=== PATIENT | female | born 1955 | race Caucasian/White ===

== ENCOUNTER 2017-08-06 13:40 | Observation (INO) | payer BC ==
[~2017-08-06] VITALS: Ht 154.9 cm; Wt 128.4 kg
[2017-08-06] MEDS ORDERED: ONDANSETRON INJ 2 MG/ML 2 ML VIAL IV STA ×2 (14:24→15:24)
[2017-08-06] MEDS ORDERED: SODIUM CHLORIDE 0.9% 1000ML 1,000 ML IV STA (14:24)
[2017-08-06] MEDS ORDERED: OPTIRAY 320 IV PRN (14:30)
[2017-08-06] MEDS ORDERED: MoRPHine SULFATE 10 MG/ML CARP/VIAL IV PRN (14:30)
[2017-08-06] MEDS ORDERED: MoRPHine SULFATE 2 MG/ML CARP ONE (14:32)
[2017-08-06 14:53] LABS: BASO % 0.2 %; BASO ABS # 0.03 K/uL (0-0.2); EOS % 0.4 %; EOS ABS # 0.07 K/uL (0-0.5); IG# 0.07 K/uL (0.00-0.02); LYMPH % 8.6 %; LYMPH ABS # 1.59 K/uL (1.2-3.4); MEAN CELL VOLUME 87.7 fL (80-100); MEAN CORPUSCULAR HEMOGLOBIN 30.1 pg (25-34); MEAN CORPUSCULAR HGB CONC 34.3 g/dl (32-36); MEAN PLATELET VOLUME 9.4 fL (7.4-10.4); MONO % 4.5 %; MONO ABS # 0.84 K/uL (0.11-0.59); NEUT % 85.9 %; NEUT ABS # 15.94 K/uL (1.4-6.5); PLATELET COUNT 371 K/uL (130-400); RED CELL DISTRIBUTION WIDTH SD 44.7 fL (36.4-46.3); WHITE BLOOD COUNT 18.54 K/uL (4.8-10.8)
[2017-08-06] MEDS ORDERED: LISI-788 PO (15:02)
[2017-08-06] MEDS ORDERED: MULT-506 PO (15:02)
[2017-08-06] MEDS ORDERED: DOCU-94 PO (15:02)
[2017-08-06] MEDS ORDERED: IBUP600T44 PO (15:02)
[2017-08-06] MEDS ORDERED: FERR1TAB23 PO (15:02)
[2017-08-06] MEDS ORDERED: ASCO500T16 PO (15:02)
[2017-08-06 15:10] LABS: ALBUMIN 3.2 gm/dl (3.4-5.0); CALCIUM 9.1 mg/dl (8.5-10.1); CREATININE 0.81 mg/dl (0.60-1.20); POTASSIUM 3.3 mmol/L (3.5-5.1)
[2017-08-06 15:13] LABS: TOTAL PROTEIN 8.5 gm/dl (6.4-8.2)
[2017-08-06] MEDS ORDERED: METOCLOPRAMIDE HCL INJ 5 MG/ML 2 ML VIAL IV STA (16:16)
--- NOTE | 2017-08-06 17:35 | DIAGNOSTIC IMAGING REPORT ---
CT SCAN OF THE ABDOMEN AND PELVIS WITH IV CONTRAST CLINICAL HISTORY: Left-sided abdominal pain. COMPARISON STUDY: No priors. TECHNIQUE: Following the IV administration of 115 cc of Optiray 320, CT scan of the abdomen and pelvis is performed from the lung bases to the proximal femora. Images are reviewed in the axial, sagittal, and coronal planes. IV contrast was administered without complication. A dose lowering technique was utilized adhering to the principles of ALARA. The examination is degraded by large body habitus, and by streak artifact from the body wall abutting the CT gantry. CT DOSE: 1718.60 mGy.cm FINDINGS: Lung bases: The heart is normal in size and without pericardial effusion. The lung bases are clear noting dependent atelectasis. There is a small hiatal hernia. Liver: The contrast-enhanced liver is enlarged, measuring 21.5 cm in length. The liver demonstrates diffusely diminished attenuation consistent with hepatic steatosis. There is minimal central intrahepatic biliary ductal dilatation. The hepatic veins and portal veins are patent. Numerous calcified granulomas are identified. Gallbladder: Not identified and presumed surgically absent. Spleen: Normal in size and attenuation. There are numerous calcified splenic granulomas. Pancreas: Unremarkable. Adrenal glands: Unremarkable. Kidneys: The contrast enhanced kidneys are normal in size and without hydronephrosis. There is heterogeneous perfusion of both kidneys, left greater than right. There is associated left-sided perinephric stranding and trace perinephric fluid. The appearance suggests pyelonephritis. There is a 2.8 cm low-attenuation focus in the interpolar left kidney seen on image #[id number]. Abdominal vasculature: The abdominal aorta is normal in course and caliber noting scattered foci of atherosclerotic calcification. Bowel: There is moderate colonic diverticulosis without CT evidence of acute diverticulitis. No bowel obstruction is seen. The appendix is well-visualized and normal. Peritoneum: There is no intraperitoneal free air or abdominal ascites. Lymphadenopathy: None. Pelvic viscera: The bladder is normal as visualized. The uterus is enlarged and contains numerous fibroids. No adnexal lesion is seen. Skeletal structures: The skeletal structures are osteopenic. Degenerative change is present throughout the lumbosacral spine. No lytic or blastic lesions are seen. IMPRESSION: 1. There is heterogeneous perfusion of both kidneys, left greater than right with associated left-sided perinephric stranding and trace perinephric fluid. The appearance suggests bilateral pyelonephritis. Correlation with clinical findings and urinalysis will be required. 2. There is a 2.8 cm low-attenuation focus present in the interpolar left kidney. Although this could represent a complex cyst, the appearance is concerning for phlegmonous change/developing abscess. Mass is considered much less likely. Follow-up renal ultrasound in several weeks time is recommended to document resolution. 3. Moderate colonic diverticulosis without CT evidence of acute diverticulitis. 4. Hepatomegaly and severe hepatic steatosis. 5. Enlarged fibroid uterus. 6. Additional findings as above. Electronically signed by: Villa Degroot M.D. 08/06/2017 5:33 PM Dictated Date/Time: 08/06/2017 5:27 PM
[2017-08-06] MEDS ORDERED: CEFTRIAXONE SOD INJ 1 GM ADDVIAL IV STA (18:03)
[2017-08-06] MEDS ORDERED: ACETAMINOPHEN 325 MG TAB PO PRN (19:15)
[2017-08-06] MEDS ORDERED: LSN20 PO (19:15)
[2017-08-06] MEDS ORDERED: HYDR25TA4 PO (19:15)
[2017-08-06] MEDS ORDERED: ONDANSETRON INJ 2 MG/ML 2 ML VIAL IV PRN (19:15)
--- NOTE | 2017-08-06 19:28 | History and Physical ---
History & Physical Date & Time of Service: Aug 06, 2017 at 19:17 Chief Complaint: Pain In L Side Of Stomach Primary Care Physician: No Doctor, Assigned History of Present Illness Source: patient This is a 62yo F with PMH of HTN, osteoarthritis and diverticulitis who presents with LLQ abdominal pain x 3 days. Patient is here visiting family and was in normal state of health until Thursday night, when she experienced sudden onset LLQ pain that is sharp and constant, non-radiating. Associated with nausea , vomiting, low grade fever and chills. Decreased PO intake 2/2 nausea. Came to ED for further evaluation. Denies fever, chills, lightheadedness, chest pain, SOB, vomiting, flank pain, urinary symptoms, constipation/diarrhea or LE swelling. Past Medical/Surgical History Medical Problems: (1) H/O diverticulitis of colon Status: Chronic (2) HTN (hypertension) Status: Chronic (3) Osteoarthritis Status: Chronic Surgical Problems: (1) S/P cholecystectomy Status: Resolved (2) S/P left oophorectomy Status: Resolved Family History Non-contributory Social History Smoking Status: Never Smoker Alcohol Use: none Occupational Status: employed Allergies Coded Allergies: Codeine (Unverified Adverse Reaction, Severe, N/V, 08/06/17) Home Medications Scheduled Ascorbic Acid (Ascorbic Acid), 500 MG PO DAILY Docusate Sodium (Colace), 1 CAP PO DAILY Ferrous Sulfate (Iron), 1 TAB PO DAILY Hydrochlorothiazide (Hctz), 25 MG PO HS Ibuprofen (Motrin), 600 MG PO BID Lisinopril (Lisinopril), 1 TAB PO HS Multivitamin (Multivitamin), 1 TAB PO DAILY Review of Systems Ten systems reviewed and negative except as noted in the HPI. Physical Exam Vital Signs Date Time Temp Pulse Resp B/P (MAP) Pulse Ox O2 Delivery O2 Flow Rate FiO2 08/06/17 17:58 93 08/06/17 17:52 96 18 142/68 94 Room Air 08/06/17 15:40 90 16 134/72 98 Room Air 08/06/17 14:57 95 08/06/17 13:45 37.0 105 20 136/91 95 Room Air General Appearance: no apparent distress, + obese Head: normocephalic, atraumatic Eyes: normal inspection, PERRL, sclerae normal ENT: normal ENT inspection, hearing grossly normal, pharynx normal (dry mucous membranes) Neck: supple, no JVD, trachea midline Respiratory/Chest: chest non-tender, lungs clear, normal breath sounds, no respiratory distress, no accessory muscle use Cardiovascular: regular rate, rhythm, normal peripheral pulses, + systolic murmur (heard best at [facility]) Abdomen/GI: soft, no organomegaly, + tenderness (Mild LLQ, suprapubic tenderness ) Back: + pertinent finding (No CVA tenderness) Extremities/Musculoskelatal: normal inspection, no calf tenderness, normal capillary refill, no pedal edema Neurologic/Psych: no motor/sensory deficits, alert, normal mood/affect, oriented x 3 Skin: normal color, warm/dry, no rash Diagnostics Laboratory Results Results Past 24 Hours Test 08/06/17 14:40 08/06/17 18:29 Range/Units White Blood Count 18.54 4.8-10.8 K/uL Red Blood Count 3.99 4.2-5.4 M/uL Hemoglobin 12.0 12.0-16.0 g/dL Hematocrit 35.0 37-47 % Mean Corpuscular Volume 87.7 80-100 fL Mean Corpuscular Hemoglobin 30.1 25-34 pg Mean Corpuscular Hemoglobin Concent 34.3 32-36 g/dl Platelet Count 371 130-400 K/uL Mean Platelet Volume 9.4 7.4-10.4 fL Neutrophils (%) (Auto) 85.9 % Lymphocytes (%) (Auto) 8.6 % Monocytes (%) (Auto) 4.5 % Eosinophils (%) (Auto) 0.4 % Basophils (%) (Auto) 0.2 % Neutrophils # (Auto) 15.94 1.4-6.5 K/uL Lymphocytes # (Auto) 1.59 1.2-3.4 K/uL Monocytes # (Auto) 0.84 0.11-0.59 K/uL Eosinophils # (Auto) 0.07 0-0.5 K/uL Basophils # (Auto) 0.03 0-0.2 K/uL RDW Standard Deviation 44.7 36.4-46.3 fL RDW Coefficient of Variation 14.0 11.5-14.5 % Immature Granulocyte % (Auto) 0.4 % Immature Granulocyte # (Auto) 0.07 0.00-0.02 K/uL Urine Color YELLOW Urine Appearance CLOUDY CLEAR Urine pH 5.0 4.5-7.5 Urine Specific [place] 1.015 1.000-1.030 Urine Protein TRACE NEG Urine Glucose (UA) NEG NEG Urine Ketones NEG NEG Urine Occult Blood 2+ NEG Urine Nitrite POS NEG Urine Bilirubin NEG NEG Urine Urobilinogen NEG NEG Urine Leukocyte Esterase SMALL NEG Urine WBC (Auto) 10-30 0-5 /hpf Urine RBC (Auto) 5-10 0-4 /hpf Urine Hyaline Casts (Auto) 1-5 0-5 /lpf Urine Epithelial Cells (Auto) >30 0-5 /lpf Urine Bacteria (Auto) 4+ NEG Sodium Level 133 136-145 mmol/L Potassium Level 3.3 3.5-5.1 mmol/L Chloride Level 98 98-107 mmol/L Carbon Dioxide Level 29 21-32 mmol/L Anion Gap 6.0 3-11 mmol/L Blood Urea Nitrogen 16 7-18 mg/dl Creatinine 0.81 0.60-1.20 mg/dl Est Creatinine Clear Calc Drug Dose 93.3 ml/min Estimated GFR () 91.5 Estimated GFR (Non- 78.9 BUN/Creatinine Ratio 19.4 10-20 Random Glucose 102 70-99 mg/dl Calcium Level 9.1 8.5-10.1 mg/dl Total Bilirubin 1.1 0.2-1 mg/dl Direct Bilirubin 0.3 0-0.2 mg/dl Aspartate Amino Transf (AST/SGOT) 19 15-37 U/L Alanine Aminotransferase (ALT/SGPT) 38 12-78 U/L Alkaline Phosphatase 94 45-117 U/L Total Protein 8.5 6.4-8.2 gm/dl Albumin 3.2 3.4-5.0 gm/dl Lipase 127 73-393 U/L Bedside Lactic Acid Venous 0.59 0.90-1.70 mmol/L Microbiology Results 08/06/17 Urine Culture, Received Pending Diagnostic Radiology CT Abd/pelvis: IMPRESSION: 1. There is heterogeneous perfusion of both kidneys, left greater than right with associated left-sided perinephric stranding and trace perinephric fluid. The appearance suggests bilateral pyelonephritis. Correlation with clinical findings and urinalysis will be required. 2. There is a 2.8 cm low-attenuation focus present in the interpolar left kidney. Although this could represent a complex cyst, the appearance is concerning for phlegmonous change/developing abscess. Mass is considered much less likely. Follow-up renal ultrasound in several weeks time is recommended to document resolution. 3. Moderate colonic diverticulosis without CT evidence of acute diverticulitis. 4. Hepatomegaly and severe hepatic steatosis. 5. Enlarged fibroid uterus. Impression Assessment and Plan This is a 62yo F with PMH of HTN, osteoarthritis and diverticulitis who presents with LLQ abdominal pain x 3 days and was found to have bilateral pyelonephritis. Bilateral pyelonephritis: -Nausea, vomiting, low grade fever x 3 days -Leukocytosis of 18.5 -CT abd/pelvis with appearance of bilateral pyelonephritis -Rocephin given in ED. Plan to continue -Urine and blood cultures pending -IVF resuscitation -Pain management and anti-emetics Hypokalemia: -2/2 GI losses -Replaced -Repeat BMP in AM HTN: -Cont home dose lisinopril -Held HCTZ while giving fluids Osteoarthritis: -Stable -Held home dose motrin while receiving IV pain meds Renal focus on CT abd/pelvis: -Likely a complex cyst vs developing abscess -Radiology recommends follow-up ultrasound in a few weeks to document resolution DVT Ppx: Lovenox SQ Code status: FULL PCP: Here visiting; from [place]. Dispo: Observation on medsur. Plan to return home once medically stable. Patient seen in collaboration with Dr. Lara. Please see addendum. Attending Addendum: The patient was seen and examined Has had fever with chills and nauseous last Thursday Pain left lower abdomen, not getting any better CT documented Bilateral Pyelonephritis and Urine is Dirty O/E No acute distress Chest-clear to auscultate bilaterally Heart-regular,2/6 ESM precordial Abdomen-soft ,mildly tender left Renal angle Extremities-no edema Labs and Imaging studies were reviewed Agree with the assessment and plan. Dr Sarwat Rivas Level of Care Med/Surg Resuscitation Status FULL RESUSCITATION VTE Prophylaxis VTE Risk Assessment Done? Y/N: Yes Risk Level: Low Given or contraindicated: Enoxaparin (Lovenox)SQ Social Service Consult None Apply
[2017-08-06] MEDS ORDERED: KETOROLAC TROMETHAMINE 30 MG/ML VIAL IV PRN (19:30)
[2017-08-06] MEDS ORDERED: POTASSIUM CHLORIDE 20 MEQ TABCR PO ONE (19:30)
[2017-08-06] MEDS ORDERED: MoRPHine SULFATE 2 MG/ML CARP IV PRN (19:30)
[2017-08-06 19:50] VITALS: O2SAT 94
[2017-08-06] MEDS ORDERED: IV FLUIDS COMPLETED PRN (20:00)
[2017-08-06 20:19] VITALS: Ht 154.9 cm; Wt 128.4 kg
[2017-08-06] MEDS ORDERED: SODIUM CHLORIDE 0.9% 1000ML 1,000 ML IV SCH (20:30)
[2017-08-06 20:31] VITALS: BP 129/82; PULSE 84; TEMP 36.8; O2SAT 94
[2017-08-06] MEDS ORDERED: LISINOPRIL 20 MG TAB PO SCH (21:00)
[2017-08-06] MEDS ORDERED: HYDROCHLOROTHIAZIDE 25 MG TAB PO SCH (21:00)
[2017-08-06] MEDS: ENOXAPARIN 40 MG/0.4 ML SYR SQ SCH (21:43)
[2017-08-06] MEDS: METOCLOPRAMIDE HCL INJ 5 MG/ML 2 ML VIAL IV PRN (21:44)
[2017-08-06] MEDS ORDERED: HydrALAZINE HCL 20 MG/ML VIAL IV. PRN (23:00)
[2017-08-06] MEDS ORDERED: POTASSIUM CHLORIDE INJ 40 MEQ in SODIUM CHLORIDE 0.9% 1000ML 1,000 ML IV SCH (23:00)
[2017-08-06 23:23] VITALS: BP 112/70; PULSE 72; TEMP 36.9; O2SAT 96
[2017-08-07 07:45] VITALS: BP 157/82; PULSE 85; TEMP 36.6; O2SAT 98
[2017-08-07 08:09] LABS: HEMATOCRIT 34.2 % (37-47); HEMOGLOBIN 11.8 g/dL (12.0-16.0); MEAN CELL VOLUME 88.8 fL (80-100); MEAN CORPUSCULAR HEMOGLOBIN 30.6 pg (25-34); MEAN CORPUSCULAR HGB CONC 34.5 g/dl (32-36); MEAN PLATELET VOLUME 9.3 fL (7.4-10.4); PLATELET COUNT 350 K/uL (130-400); RED CELL DISTRIBUTION WIDTH SD 45.4 fL (36.4-46.3); WHITE BLOOD COUNT 10.86 K/uL (4.8-10.8)
[2017-08-07 08:39] LABS: CALCIUM 9.1 mg/dl (8.5-10.1); CREATININE 0.73 mg/dl (0.60-1.20); POTASSIUM 3.7 mmol/L (3.5-5.1)
[2017-08-07] MEDS: ASCORBIC ACID 500 MG TAB PO SCH (08:40)
[2017-08-07] MEDS: DOCUSATE SODIUM 100 MG CAP PO SCH (08:41)
[2017-08-07 08:43] LABS: TOTAL PROTEIN 8.4 gm/dl (6.4-8.2)
[2017-08-07] MEDS: METOCLOPRAMIDE HCL INJ 5 MG/ML 2 ML VIAL IV PRN ×2 (09:28→17:00)
[2017-08-07] MEDS ORDERED: PIPERACILL/TAZOBAC CONSULT ACTIVE PRN (10:15)
[2017-08-07] MEDS ORDERED: PIPERACILL/TAZOBAC IV 3.375 GM in DEXTROSE 5% 100ML IV ONE (11:00)
[2017-08-07] MEDS ORDERED: PIPERACILL/TAZOBAC IV 3.375 GM in DEXTROSE 5% 100ML 100 ML IV SCH (12:00)
--- NOTE | 2017-08-07 14:43 | Progress Note ---
Medicine Progress Note Date & Time of Visit: Aug 07, 2017 at 14:39. (Nai Acosta, P.A.-C.) Subjective Patient was seen and examined. Sitting upright in chair looking out the window. States that she experienced chills and nausea overnight but both have since resolved. Tolerated lunch well. No episodes of vomiting since last evening. LLQ is no longer present. Still denies any urinary symptoms or flank pain. No fever, chills, lightheadedness, CP, SOB, abd pain, LE swelling. (Nai Acosta ., P.A.-C.) Objective Last 8 Hrs Date Time Temp Pulse Resp B/P (MAP) Pulse Ox O2 Delivery O2 Flow Rate FiO2 08/07/17 08:11 Room Air 08/07/17 07:45 36.6 85 18 157/82 (107) 98 Room Air Physical Exam: General Appearance: no apparent distress, + obese Head: normocephalic, atraumatic Eyes: normal inspection, PERRL, sclerae normal ENT: normal ENT inspection, hearing grossly normal, pharynx normal (moist mucous membranes) Neck: supple, no JVD, trachea midline Respiratory/Chest: chest non-tender, lungs clear, normal breath sounds, no respiratory distress, no accessory muscle use Cardiovascular: regular rate, rhythm, normal peripheral pulses, + systolic murmur (heard best at [facility]) Abdomen/GI: soft, no organomegaly, diffuse tenderness but no longer in LLQ Back: + pertinent finding (No CVA tenderness) Extremities/Musculoskelatal: normal inspection, no calf tenderness, normal capillary refill, no pedal edema Neurologic/Psych: no motor/sensory deficits, alert, normal mood/affect, oriented x 3 Skin: normal color, warm/dry, no rash Laboratory Results: Last 24 Hours Test 08/06/17 14:40 08/06/17 18:29 08/06/17 20:29 08/07/17 07:53 White Blood Count 18.54 K/uL 10.86 K/uL Red Blood Count 3.99 M/uL 3.85 M/uL Hemoglobin 12.0 g/dL 11.8 g/dL Hematocrit 35.0 % 34.2 % Mean Corpuscular Volume 87.7 fL 88.8 fL Mean Corpuscular Hemoglobin 30.1 pg 30.6 pg Mean Corpuscular Hemoglobin Concent 34.3 g/dl 34.5 g/dl Platelet Count 371 K/uL 350 K/uL Mean Platelet Volume 9.4 fL 9.3 fL Neutrophils (%) (Auto) 85.9 % Lymphocytes (%) (Auto) 8.6 % Monocytes (%) (Auto) 4.5 % Eosinophils (%) (Auto) 0.4 % Basophils (%) (Auto) 0.2 % Neutrophils # (Auto) 15.94 K/uL Lymphocytes # (Auto) 1.59 K/uL Monocytes # (Auto) 0.84 K/uL Eosinophils # (Auto) 0.07 K/uL Basophils # (Auto) 0.03 K/uL RDW Standard Deviation 44.7 fL 45.4 fL RDW Coefficient of Variation 14.0 % 14.0 % Immature Granulocyte % (Auto) 0.4 % Immature Granulocyte # (Auto) 0.07 K/uL Urine Color YELLOW Urine Appearance CLOUDY Urine pH 5.0 Urine Specific [place] 1.015 Urine Protein TRACE Urine Glucose (UA) NEG Urine Ketones NEG Urine Occult Blood 2+ Urine Nitrite POS Urine Bilirubin NEG Urine Urobilinogen NEG Urine Leukocyte Esterase SMALL Urine WBC (Auto) 10-30 /hpf Urine RBC (Auto) 5-10 /hpf Urine Hyaline Casts (Auto) 1-5 /lpf Urine Epithelial Cells (Auto) >30 /lpf Urine Bacteria (Auto) 4+ Sodium Level 133 mmol/L 137 mmol/L Potassium Level 3.3 mmol/L 3.7 mmol/L Chloride Level 98 mmol/L 102 mmol/L Carbon Dioxide Level 29 mmol/L 27 mmol/L Anion Gap 6.0 mmol/L 8.0 mmol/L Blood Urea Nitrogen 16 mg/dl 12 mg/dl Creatinine 0.81 mg/dl 0.73 mg/dl Est Creatinine Clear Calc Drug Dose 93.3 ml/min 103.5 ml/min Estimated GFR () 91.5 103.8 Estimated GFR (Non- 78.9 89.5 BUN/Creatinine Ratio 19.4 16.2 Random Glucose 102 mg/dl 103 mg/dl Calcium Level 9.1 mg/dl 9.1 mg/dl Total Bilirubin 1.1 mg/dl 1.0 mg/dl Direct Bilirubin 0.3 mg/dl Aspartate Amino Transf (AST/SGOT) 19 U/L 46 U/L Alanine Aminotransferase (ALT/SGPT) 38 U/L 82 U/L Alkaline Phosphatase 94 U/L 140 U/L Total Protein 8.5 gm/dl 8.4 gm/dl Albumin 3.2 gm/dl 3.0 gm/dl Lipase 127 U/L Hepatitis C Antibody Screen NEG Bedside Lactic Acid Venous 0.59 mmol/L Prothrombin Time 10.7 SECONDS Prothromb Time International Ratio 1.0 Activated Partial Thromboplast Time 32.0 SECONDS Partial Thromboplastin Ratio 1.2 Globulin 5.4 gm/dl Albumin/Globulin Ratio 0.6 Date/Time Source Procedure Growth Status 08/06/17 20:45 Blood Blood Culture Pending Received 08/06/17 20:29 Blood Blood Culture Pending Received 08/06/17 14:40 Urine , Clean Catch Urine Culture - Preliminary Gram Negative Bacilli Resulted (Nai Acosta, P.A.-C.) Assessment & Plan This is a 62yo F with PMH of HTN, osteoarthritis and diverticulitis who presents with LLQ abdominal pain x 3 days and was found to have bilateral pyelonephritis. Bilateral pyelonephritis: -Nausea, vomiting, low grade fever x 3 days -Leukocytosis of 10.8 (down from 18.5 yesterday) -Preliminary urine with >100,000 CFU/ml of gram negative bacilli -Sensitivities pending -Switched to Zosyn for broader coverage until cultures are finalized -Blood cultures pending -Nausea, LLQ pain improving -Pain management and anti-emetics Hypokalemia: resolved -2/2 GI losses -Replaced HTN: -BP elevated due to missed doses last night 2/2 vomiting -Given extra dose of lisinopril today -Held HCTZ while receiving IVF Osteoarthritis: -Stable -Held home dose motrin while receiving IV pain meds Renal focus on CT abd/pelvis: -Likely a complex cyst vs developing abscess -Radiology recommends follow-up ultrasound in a few weeks to document resolution DVT Ppx: Lovenox SQ Code status: FULL PCP: Here visiting; from [place]. Dispo: Observation on medsurg. Plan to return home once medically stable. Patient seen in collaboration with Dr. Ballard. Please see addendum. Current Inpatient Medications: Current Inpatient Medications Medications (Trade) Dose Ordered Sig/Karly Route Start Time Stop Time Status Last Admin Dose Admin Ioversol (Optiray 320) 100 ml UD PRN IV 08/06/17 14:30 08/10/17 14:29 Enoxaparin Sodium (Lovenox Inj) 40 mg Q24H SQ 08/06/17 19:15 09/05/17 19:14 08/06/17 21:43 40 MG Acetaminophen (Tylenol Tab) 650 mg Q4H PRN PO 08/06/17 19:15 09/05/17 19:14 Ondansetron HCl (Zofran Inj) 4 mg Q6H PRN IV 08/06/17 19:15 09/05/17 19:14 Ascorbic Acid (Vitamin C Tab) 500 mg DAILY PO 08/07/17 09:00 09/06/17 08:59 08/07/17 08:40 500 MG Docusate Sodium (coLACE CAP) 100 mg DAILY PO 08/07/17 09:00 09/06/17 08:59 Lisinopril (Zestril Tab) 20 mg HS PO 08/06/17 21:00 09/05/17 20:59 Ketorolac Tromethamine (Toradol Inj) 30 mg Q6H PRN IV 08/06/17 19:30 08/11/17 19:29 Morphine Sulfate (MoRPHine SULFATE INJ) 2 mg Q4 PRN IV 08/06/17 19:30 08/20/17 19:29 Miscellaneous (Iv Fluids Completed) 1 ea PRN PRN N/A 08/06/17 20:00 08/06/18 19:59 08/07/17 07:59 1 EA Metoclopramide HCl (Reglan Inj) 10 mg Q6H PRN IV 08/06/17 21:00 09/05/17 20:59 08/07/17 09:28 10 MG Hydralazine HCl (HydrALAZINE INJ) 10 mg Q6 PRN IV. 08/06/17 23:00 09/05/17 22:59 Piperacillin Sod/ Tazobactam Sod (Consult) 1 ea UD PRN N/A 08/07/17 10:15 09/06/17 10:14 Piperacillin Sod/ Tazobactam Sod 4.5 gm/Dextrose 120 ml @ 30 mls/hr Q8H IV 08/07/17 16:00 08/17/17 15:59 (Nai Acosta, P.A.-C.) Patient seen and examined with YUSRA Acosta. I agree with the above assessment and Plan. primary issue holding up inpatient discharge is that patient's urine culture has not speciated with sensitivities yet. Partial results as gram negative bacilli and so antibiotic coverage was broadened from ceftriaxone to Zosyn. Patient otherwise doing well. No acute pain. Physical exam is unremarkable - lungs clear to auscultation, lungs sounds are clear, breathing on room air, no abdominal or back pain. (Chuckie Ballard M.D.)
[2017-08-07 15:36] VITALS: BP 152/65; PULSE 86; TEMP 36.8; O2SAT 96
[2017-08-07] MEDS ORDERED: PIPERACILL/TAZOBAC IV 3.375 GM in DEXTROSE 5% 100ML IV SCH (16:00)
[2017-08-07] MEDS: PIPERACILL/TAZOBAC IV 4.5 GM in DEXTROSE 5% 100ML IV SCH (17:05)
[2017-08-07] MEDS ORDERED: CEFTRIAXONE SOD INJ 1 GM in DEXTROSE 5% ADD-VANTAGE 50ML 50 ML IV SCH (18:00)
--- NOTE | 2017-08-07 18:54 | EMERGENCY ROOM VISIT NOTE ---
ED Visit Note First contact with patient: 13:54 Chief Complaint: Abdominal pain. History of Present Illness: Ms. Reed is a 62 year-old white female complaining of left lower quadrant abdominal pain. Historically patient reports status post left ovarian removal and status post cholecystectomy. Additionally patient reports many years ago she was seen for left lower quadrant pain and reports without imaging she was diagnosed with diverticulitis. She reports there was no follow-up from this visit. Patient reports a onset of quadrant abdominal pain that started approximately hours ago. Since that time the pain has been . The pain is currently described as . The pain is nonradiating. The pain worsens with and is improved by . has been taken for pain and relief has been achieved. Associated with the pain there has been . Patient denies fevers, chills, sweats, skin eruptions, skin color changes, upper respiratory tract symptoms, shortness of breath, chest pain, nausea, vomiting, diarrhea, constipation, rectal bleeding, black/tarry stools, urinary symptoms, hematuria, vaginal bleeding, vaginal discharge, back/flank pain. Review of Systems: As noted above in history of present illness. All body systems were reviewed and found to be negative as noted above. Past Medical History: As previously noted, hypertension, status post unspecified rotator cuff surgery and left knee surgery. Current Medications: Iron, multivitamins, vitamin C, Motrin, Colace. Allergies to Medications: Codeine. Social History: Patient is currently employed; she lives with her and feels safe in her home environment; she denies tobacco and alcohol use. Physical Examination: Vital Signs: Date Time Temp Pulse Resp B/P (MAP) Pulse Ox O2 Delivery O2 Flow Rate FiO2 08/06/17 17:58 93 08/06/17 17:52 96 18 142/68 94 Room Air 08/06/17 15:40 90 16 134/72 98 Room Air 08/06/17 14:57 95 08/06/17 13:45 37.0 105 20 136/91 95 Room Air GENERAL: 62-year-old female in mild distress due to pain, nontoxic-appearing, afebrile and hemodynamically stable. NEUROLOGICAL: Awake, alert and oriented to person, place and time. Answering questions appropriately and following commands. Normal gait. Good hand eye coordination. SKIN: Warm, dry and pink. No soft tissue eruptions or trauma noted. HEENT: Atraumatic and normocephalic. PERRLA. Sclera white and conjunctiva pink. Oral cavity moist and pink. Pharynx is nonerythematous or edematous. Speech normal. No lymphadenopathy. Trachea midline. No jugular venous distention. BACK: No tenderness over the bony spine. No CVA tenderness. THORAX: Lungs sounds are clear to auscultation and equal bilaterally with symmetrical chest wall. No wheezing, rales or rhonchi. No crepitus, tenderness , subcutaneous air or deformities noted. HEART: Regular rate and rhythm. No gallops, rubs or murmurs are appreciated. ABDOMEN: Obese and soft with mild left lower quadrant tenderness. Positive bowel sounds in all quadrants. No guarding, rigidity or organomegaly. EXTREMITIES: Moves all extremities well on command and with purpose. All distal neurovascular statuses are intact and equal bilaterally. ED Course: Patient is assessed as noted above. Laboratory Testing: Test 08/06/17 14:40 08/06/17 18:29 Range/Units White Blood Count 18.54 4.8-10.8 K/uL Red Blood Count 3.99 4.2-5.4 M/uL Hemoglobin 12.0 12.0-16.0 g/dL Hematocrit 35.0 37-47 % Mean Corpuscular Volume 87.7 80-100 fL Mean Corpuscular Hemoglobin 30.1 25-34 pg Mean Corpuscular Hemoglobin Concent 34.3 32-36 g/dl Platelet Count 371 130-400 K/uL Mean Platelet Volume 9.4 7.4-10.4 fL Neutrophils (%) (Auto) 85.9 % Lymphocytes (%) (Auto) 8.6 % Monocytes (%) (Auto) 4.5 % Eosinophils (%) (Auto) 0.4 % Basophils (%) (Auto) 0.2 % Neutrophils # (Auto) 15.94 1.4-6.5 K/uL Lymphocytes # (Auto) 1.59 1.2-3.4 K/uL Monocytes # (Auto) 0.84 0.11-0.59 K/uL Eosinophils # (Auto) 0.07 0-0.5 K/uL Basophils # (Auto) 0.03 0-0.2 K/uL RDW Standard Deviation 44.7 36.4-46.3 fL RDW Coefficient of Variation 14.0 11.5-14.5 % Immature Granulocyte % (Auto) 0.4 % Immature Granulocyte # (Auto) 0.07 0.00-0.02 K/uL Urine Color YELLOW Urine Appearance CLOUDY CLEAR Urine pH 5.0 4.5-7.5 Urine Specific [place] 1.015 1.000-1.030 Urine Protein TRACE NEG Urine Glucose (UA) NEG NEG Urine Ketones NEG NEG Urine Occult Blood 2+ NEG Urine Nitrite POS NEG Urine Bilirubin NEG NEG Urine Urobilinogen NEG NEG Urine Leukocyte Esterase SMALL NEG Urine WBC (Auto) 10-30 0-5 /hpf Urine RBC (Auto) 5-10 0-4 /hpf Urine Hyaline Casts (Auto) 1-5 0-5 /lpf Urine Epithelial Cells (Auto) >30 0-5 /lpf Urine Bacteria (Auto) 4+ NEG Sodium Level 133 136-145 mmol/L Potassium Level 3.3 3.5-5.1 mmol/L Chloride Level 98 98-107 mmol/L Carbon Dioxide Level 29 21-32 mmol/L Anion Gap 6.0 3-11 mmol/L Blood Urea Nitrogen 16 7-18 mg/dl Creatinine 0.81 0.60-1.20 mg/dl Est Creatinine Clear Calc Drug Dose 93.3 ml/min Estimated GFR () 91.5 Estimated GFR (Non- 78.9 BUN/Creatinine Ratio 19.4 10-20 Random Glucose 102 70-99 mg/dl Calcium Level 9.1 8.5-10.1 mg/dl Total Bilirubin 1.1 0.2-1 mg/dl Direct Bilirubin 0.3 0-0.2 mg/dl Aspartate Amino Transf (AST/SGOT) 19 15-37 U/L Alanine Aminotransferase (ALT/SGPT) 38 12-78 U/L Alkaline Phosphatase 94 45-117 U/L Total Protein 8.5 6.4-8.2 gm/dl Albumin 3.2 3.4-5.0 gm/dl Lipase 127 73-393 U/L Hepatitis C Antibody Screen NEG NEG Bedside Lactic Acid Venous 0.59 0.90-1.70 mmol/L Microbiology Results 08/06/17 Urine Culture - Gram Negative Bacilli Contrast Abdominal/Pelvic CT: Was reviewed by myself and read by the radiologist showing heterogeneous perfusion of both kidneys, left greater than right with associated left-sided perinephric stranding and trace perinephric fluid suggesting bilateral pyelonephritis. 2.8 cm low attenuation focus present in the interpolar the left kidney of questionable cause. Moderate colonic diverticulosis without diverticulitis. Hepatomegaly with severe hepatic steatosis. Enlarged fibroid uterus. Patient was hydrated with normal saline and she received 4 mg of morphine IV for pain, a total of 8 mg of Zofran and 10 mg of Reglan IV for nausea and 1 g of Rocephin IV for antibiotic coverage. Patient was reassessed multiple times during her stay in the emergency department. Patient's case was reviewed with Dr. Florence; we agreed on diagnostic approach , treatment, disposition and plan per Patient's case was consulted with case management and Ms. Nai Acosta, hospitalist, for medical observation/admission. Patient was educated about today's findings. Clinical Impression: Bilateral pyelonephritis. Decision-Making: Initially my differential diagnosis I considered bowel obstruction, constipation, diverticulitis, ovarian torsion, ovarian cyst rupture , urinary tract infection and other causes. Disposition and Plan: Patient be brought in the hospital for medical observation /admission; please see the hospitalist note for final disposition and plan.
[2017-08-07] MEDS: ENOXAPARIN 40 MG/0.4 ML SYR SQ SCH (19:15)
[2017-08-07] MEDS ORDERED: LISINOPRIL 20 MG TAB PO SCH (21:00)
[2017-08-07 21:39] VITALS: BP 130/80; PULSE 86
[2017-08-07 23:21] VITALS: BP 135/77; PULSE 69; TEMP 36.4; O2SAT 98
[2017-08-08] MEDS: PIPERACILL/TAZOBAC IV 4.5 GM in DEXTROSE 5% 100ML IV SCH ×2 (00:14→08:04)
[2017-08-08] MEDS: METOCLOPRAMIDE HCL INJ 5 MG/ML 2 ML VIAL IV PRN (02:33)
[2017-08-08 07:23] VITALS: BP 149/82; PULSE 79; TEMP 36.7; O2SAT 79; O2SAT 98
[2017-08-08 07:53] LABS: BASO % 0.2 %; BASO ABS # 0.04 K/uL (0-0.2); EOS % 0.6 %; EOS ABS # 0.13 K/uL (0-0.5); HEMATOCRIT 29.5 % (37-47); HEMOGLOBIN 10.1 g/dL (12.0-16.0); IG# 0.09 K/uL (0.00-0.02); LYMPH % 10.7 %; LYMPH ABS # 2.15 K/uL (1.2-3.4); MEAN CELL VOLUME 87.8 fL (80-100); MEAN CORPUSCULAR HEMOGLOBIN 30.1 pg (25-34); MEAN CORPUSCULAR HGB CONC 34.2 g/dl (32-36); MEAN PLATELET VOLUME 9.5 fL (7.4-10.4); MONO % 4.4 %; MONO ABS # 0.89 K/uL (0.11-0.59); NEUT % 83.7 %; NEUT ABS # 16.85 K/uL (1.4-6.5); PLATELET COUNT 316 K/uL (130-400); RED CELL DISTRIBUTION WIDTH CV 14.1 % (11.5-14.5); RED CELL DISTRIBUTION WIDTH SD 45.1 fL (36.4-46.3); WHITE BLOOD COUNT 20.15 K/uL (4.8-10.8)
[2017-08-08 07:57] LABS: ALBUMIN 2.6 gm/dl (3.4-5.0); CALCIUM 8.6 mg/dl (8.5-10.1); CREATININE 0.73 mg/dl (0.60-1.20); POTASSIUM 3.2 mmol/L (3.5-5.1)
[2017-08-08 08:00] LABS: TOTAL PROTEIN 7.1 gm/dl (6.4-8.2)
[2017-08-08] MEDS: DOCUSATE SODIUM 100 MG CAP PO SCH (08:08)
[2017-08-08] MEDS: ASCORBIC ACID 500 MG TAB PO SCH (08:09)
[2017-08-08] MEDS: CIPROFLOXACIN 500 MG TAB PO SCH ×2 (10:08→18:03)
--- NOTE | 2017-08-08 12:25 | Progress Note ---
Internal Med Progress Note Date of Service: Aug 08, 2017. Provider Documentation: SUBJECTIVE: Patient seen and examined at bedside. No reports of acute pain or fever. OBJECTIVE: Exam: General- no acute distress Eyes- EOMI Neck- no JVD, trachea midline Lungs- CTABL, no wheezing Heart- Regular rate Abdomen- truncal obesity, soft, nontender, + bowel sounds Back: no tenderness of the back Extremities- no edema Neuro - alert, oriented, no focal neurological deficits ASSESSMENT & PLAN: This is a 62yo F with PMH of HTN, osteoarthritis and diverticulitis who presents with LLQ abdominal pain x 3 days and was found to have bilateral pyelonephritis CT abdomen and pelvis with IV contrast 08/06/17 Lung bases: The heart is normal in size and without pericardial effusion. The lung bases are clear noting dependent atelectasis. There is a small hiatal hernia. Liver: The contrast-enhanced liver is enlarged, measuring 21.5 cm in length. The liver demonstrates diffusely diminished attenuation consistent with hepatic steatosis. There is minimal central intrahepatic biliary ductal dilatation. The hepatic veins and portal veins are patent. Numerous calcified granulomas are identified. Gallbladder: Not identified and presumed surgically absent. Spleen: Normal in size and attenuation. There are numerous calcified splenic granulomas. Pancreas: Unremarkable. Adrenal glands: Unremarkable. Kidneys: The contrast enhanced kidneys are normal in size and without hydronephrosis. There is heterogeneous perfusion of both kidneys, left greater than right. There is associated left-sided perinephric stranding and trace perinephric fluid. The appearance suggests pyelonephritis. There is a 2.8 cm low-attenuation focus in the interpolar left kidney seen on image #198. Abdominal vasculature: The abdominal aorta is normal in course and caliber noting scattered foci of atherosclerotic calcification. Bowel: There is moderate colonic diverticulosis without CT evidence of acute diverticulitis. No bowel obstruction is seen. The appendix is well-visualized and normal. Peritoneum: There is no intraperitoneal free air or abdominal ascites. Lymphadenopathy: None. Pelvic viscera: The bladder is normal as visualized. The uterus is enlarged and contains numerous fibroids. No adnexal lesion is seen. Skeletal structures: The skeletal structures are osteopenic. Degenerative change is present throughout the lumbosacral spine. No lytic or blastic lesions are seen. IMPRESSION: 1. There is heterogeneous perfusion of both kidneys, left greater than right with associated left-sided perinephric stranding and trace perinephric fluid. The appearance suggests bilateral pyelonephritis. Correlation with clinical findings and urinalysis will be required. 2. There is a 2.8 cm low-attenuation focus present in the interpolar left kidney. Although this could represent a complex cyst, the appearance is concerning for phlegmonous change/developing abscess. Mass is considered much less likely. Follow-up renal ultrasound in several weeks time is recommended to document resolution. 3. Moderate colonic diverticulosis without CT evidence of acute diverticulitis Urine Culture 08/06/17 1. KLEBSIELLA PNEUMONIAE Target Route Dose RX AB Cost M.I.C. IQ ------ ----- ------ -- ------ -------- - ------ TRIMET/SULFA S <=2/38 AMPICILLIN/SUL S <=8/4 CEFAZOLIN S <=8 CEFOXITIN S <=8 CEFOTAXIME S <=2 CEFTRIAXONE S <=1 CEFEPIME S <=4 CEFUROXIME S <=4 IMIPENEM S <=1 GENTAMICIN S <=4 TOBRAMYCIN S <=4 AMIKACIN S <=16 CIPROFLOXACIN S <=1 LEVOFLOXACIN S <=2 ERTAPENEM S <=1 NITROFURANTOIN I 64 PIP/TAZO S <=16 Patient received Ceftriaxone on hospital presentation on 08/06/17. Was then switched to Zosyn on 08/07/17 because urine culture differentiated as gram negative bacilli. Zosyn stopped on 08/08/17 as urine culture speciated as pansesnitive Klebsiella and patient is to transition to oral Ciprofloxacin 500 mg every 12 hours for 7 days Patient's WBC trended down from admission 18.56 to 16.9 Not fevers and no pain. Is well appearing and no distress. Also Hypokalemia with serum potassium 3.2, given oral potassium Patient is to follow with her primary care doctor in [place], and will need follow up renal ultrasound in several weeks time is recommended to document resolution of the 2.8 cm focus of left kideny Patient is instructed to return to the emergency room if she experiences fevers , or abdominal pain, or unusual diarrhea. Vital Signs: Date Time Temp Pulse Resp B/P (MAP) Pulse Ox O2 Delivery O2 Flow Rate FiO2 08/08/17 09:36 Room Air 08/08/17 07:23 36.7 79 20 149/82 (104) 98 08/08/17 00:00 Room Air 08/07/17 23:21 36.4 69 20 135/77 (96) 98 Room Air 08/07/17 21:39 86 130/80 (97) 08/07/17 20:00 Room Air 08/07/17 16:01 Room Air 08/07/17 15:36 36.8 86 18 152/65 (94) 96 Room Air Lab Results: Results Past 24 Hours Test 08/08/17 07:12 08/08/17 14:09 Range/Units White Blood Count 20.15 16.90 4.8-10.8 K/uL Red Blood Count 3.36 3.47 4.2-5.4 M/uL Hemoglobin 10.1 10.5 12.0-16.0 g/dL Hematocrit 29.5 30.5 37-47 % Mean Corpuscular Volume 87.8 87.9 80-100 fL Mean Corpuscular Hemoglobin 30.1 30.3 25-34 pg Mean Corpuscular Hemoglobin Concent 34.2 34.4 32-36 g/dl Platelet Count 316 356 130-400 K/uL Mean Platelet Volume 9.5 9.4 7.4-10.4 fL Neutrophils (%) (Auto) 83.7 80.3 % Lymphocytes (%) (Auto) 10.7 14.3 % Monocytes (%) (Auto) 4.4 4.1 % Eosinophils (%) (Auto) 0.6 0.7 % Basophils (%) (Auto) 0.2 0.2 % Neutrophils # (Auto) 16.85 13.58 1.4-6.5 K/uL Lymphocytes # (Auto) 2.15 2.41 1.2-3.4 K/uL Monocytes # (Auto) 0.89 0.70 0.11-0.59 K/uL Eosinophils # (Auto) 0.13 0.11 0-0.5 K/uL Basophils # (Auto) 0.04 0.04 0-0.2 K/uL RDW Standard Deviation 45.1 45.1 36.4-46.3 fL RDW Coefficient of Variation 14.1 14.1 11.5-14.5 % Immature Granulocyte % (Auto) 0.4 0.4 % Immature Granulocyte # (Auto) 0.09 0.06 0.00-0.02 K/uL Sodium Level 138 136-145 mmol/L Potassium Level 3.2 3.5-5.1 mmol/L Chloride Level 105 98-107 mmol/L Carbon Dioxide Level 27 21-32 mmol/L Anion Gap 6.0 3-11 mmol/L Blood Urea Nitrogen 9 7-18 mg/dl Creatinine 0.73 0.60-1.20 mg/dl Est Creatinine Clear Calc Drug Dose 103.5 ml/min Estimated GFR () 103.8 Estimated GFR (Non- 89.5 BUN/Creatinine Ratio 11.7 10-20 Random Glucose 116 70-99 mg/dl Calcium Level 8.6 8.5-10.1 mg/dl Magnesium Level 2.2 1.8-2.4 mg/dl Total Bilirubin 0.8 0.2-1 mg/dl Aspartate Amino Transf (AST/SGOT) 27 15-37 U/L Alanine Aminotransferase (ALT/SGPT) 58 12-78 U/L Alkaline Phosphatase 122 45-117 U/L Total Protein 7.1 6.4-8.2 gm/dl Albumin 2.6 3.4-5.0 gm/dl Globulin 4.5 2.5-4.0 gm/dl Albumin/Globulin Ratio 0.6 0.9-2
[2017-08-08] MEDS ORDERED: POTASSIUM CHLORIDE 20 MEQ TABCR PO ONE (13:15)
[2017-08-08 14:29] LABS: BASO % 0.2 %; BASO ABS # 0.04 K/uL (0-0.2); EOS % 0.7 %; EOS ABS # 0.11 K/uL (0-0.5); HEMATOCRIT 30.5 % (37-47); HEMOGLOBIN 10.5 g/dL (12.0-16.0); IG# 0.06 K/uL (0.00-0.02); LYMPH % 14.3 %; LYMPH ABS # 2.41 K/uL (1.2-3.4); MEAN CELL VOLUME 87.9 fL (80-100); MEAN CORPUSCULAR HEMOGLOBIN 30.3 pg (25-34); MEAN CORPUSCULAR HGB CONC 34.4 g/dl (32-36); MEAN PLATELET VOLUME 9.4 fL (7.4-10.4); MONO % 4.1 %; NEUT % 80.3 %; NEUT ABS # 13.58 K/uL (1.4-6.5); PLATELET COUNT 356 K/uL (130-400); RED CELL DISTRIBUTION WIDTH CV 14.1 % (11.5-14.5); RED CELL DISTRIBUTION WIDTH SD 45.1 fL (36.4-46.3)
[2017-08-08] MEDS ORDERED: CPR500 PO (14:45)
--- NOTE | 2017-08-08 14:52 | Discharge Instructions ---
Discharge Instructions Date of Service Aug 08, 2017. Admission Reason for Admission: Pyelonephritis Discharge Discharge Diagnosis / Problem: pyelonephritis, Klebsiella in urine, Hypokalemia Discharge Goals Goal(s): Decrease discomfort, Improve disease control Activity Recommendations Activity Limitations: resume your previous activity Shower/Bathe: no limitations . Instructions / Follow-Up Instructions / Follow-Up This is a 62yo F with PMH of HTN, osteoarthritis and diverticulitis who presents with LLQ abdominal pain x 3 days and was found to have bilateral pyelonephritis CT abdomen and pelvis with IV contrast 08/06/17 Lung bases: The heart is normal in size and without pericardial effusion. The lung bases are clear noting dependent atelectasis. There is a small hiatal hernia. Liver: The contrast-enhanced liver is enlarged, measuring 21.5 cm in length. The liver demonstrates diffusely diminished attenuation consistent with hepatic steatosis. There is minimal central intrahepatic biliary ductal dilatation. The hepatic veins and portal veins are patent. Numerous calcified granulomas are identified. Gallbladder: Not identified and presumed surgically absent. Spleen: Normal in size and attenuation. There are numerous calcified splenic granulomas. Pancreas: Unremarkable. Adrenal glands: Unremarkable. Kidneys: The contrast enhanced kidneys are normal in size and without hydronephrosis. There is heterogeneous perfusion of both kidneys, left greater than right. There is associated left-sided perinephric stranding and trace perinephric fluid. The appearance suggests pyelonephritis. There is a 2.8 cm low-attenuation focus in the interpolar left kidney seen on image #198. Abdominal vasculature: The abdominal aorta is normal in course and caliber noting scattered foci of atherosclerotic calcification. Bowel: There is moderate colonic diverticulosis without CT evidence of acute diverticulitis. No bowel obstruction is seen. The appendix is well-visualized and normal. Peritoneum: There is no intraperitoneal free air or abdominal ascites. Lymphadenopathy: None. Pelvic viscera: The bladder is normal as visualized. The uterus is enlarged and contains numerous fibroids. No adnexal lesion is seen. Skeletal structures: The skeletal structures are osteopenic. Degenerative change is present throughout the lumbosacral spine. No lytic or blastic lesions are seen. IMPRESSION: 1. There is heterogeneous perfusion of both kidneys, left greater than right with associated left-sided perinephric stranding and trace perinephric fluid. The appearance suggests bilateral pyelonephritis. Correlation with clinical findings and urinalysis will be required. 2. There is a 2.8 cm low-attenuation focus present in the interpolar left kidney. Although this could represent a complex cyst, the appearance is concerning for phlegmonous change/developing abscess. Mass is considered much less likely. Follow-up renal ultrasound in several weeks time is recommended to document resolution. 3. Moderate colonic diverticulosis without CT evidence of acute diverticulitis Urine Culture 08/06/17 1. KLEBSIELLA PNEUMONIAE Target Route Dose RX AB Cost M.I.C. IQ ------ ----- ------ -- ------ -------- - ------ TRIMET/SULFA S <=2/38 AMPICILLIN/SUL S <=8/4 CEFAZOLIN S <=8 CEFOXITIN S <=8 CEFOTAXIME S <=2 CEFTRIAXONE S <=1 CEFEPIME S <=4 CEFUROXIME S <=4 IMIPENEM S <=1 GENTAMICIN S <=4 TOBRAMYCIN S <=4 AMIKACIN S <=16 CIPROFLOXACIN S <=1 LEVOFLOXACIN S <=2 ERTAPENEM S <=1 NITROFURANTOIN I 64 PIP/TAZO S <=16 Patient received Ceftriaxone on hospital presentation on 08/06/17. Was then switched to Zosyn on 08/07/17 because urine culture differentiated as gram negative bacilli. Zosyn stopped on 08/08/17 as urine culture speciated as pansesnitive Klebsiella and patient is to transition to oral Ciprofloxacin 500 mg every 12 hours for 7 days Patient's WBC trended down from admission 18.56 to 16.9 Not fevers and no pain. Is well appearing and no distress. Also Hypokalemia with serum potassium 3.2, given oral potassium and Iv potassium Patient is to follow with her primary care doctor in [place], and will need follow up renal ultrasound in several weeks time is recommended to document resolution of the 2.8 cm focus of left kideny Patient is instructed to return to the emergency room if she experiences fevers , or abdominal pain, or unusual diarrhea. Current Hospital Diet Patient's current hospital diet: Low Sodium Diet (2gm Na) Discharge Diet Recommended Diet: Low Sodium Diet (2gm Na) Pending Studies Studies pending at discharge: no Laboratory Results 12/30/17 14:09 Red Blood Count 3.47, Mean Corpuscular Volume 87.9, Mean Corpuscular Hemoglobin 30.3, Mean Corpuscular Hemoglobin Concent 34.4, Mean Platelet Volume 9.4, Neutrophils (%) (Auto) 80.3, Lymphocytes (%) (Auto) 14.3, Monocytes (%) (Auto) 4.1, Eosinophils (%) (Auto) 0.7, Basophils (%) (Auto) 0.2, Neutrophils # (Auto) 13.58, Lymphocytes # (Auto) 2.41, Monocytes # (Auto) 0.70, Eosinophils # (Auto) 0.11, Basophils # (Auto) 0.04 08/08/17 07:12 Test 08/06/17 14:40 08/06/17 18:29 08/06/17 20:29 08/08/17 07:12 Urine Color YELLOW Urine Appearance CLOUDY (CLEAR) Urine pH 5.0 (4.5-7.5) Urine Specific [place] 1.015 (1.000-1.030) Urine Protein TRACE (NEG) Urine Glucose (UA) NEG (NEG) Urine Ketones NEG (NEG) Urine Occult Blood 2+ (NEG) Urine Nitrite POS (NEG) Urine Bilirubin NEG (NEG) Urine Urobilinogen NEG (NEG) Urine Leukocyte Esterase SMALL (NEG) Urine WBC (Auto) 10-30 /hpf (0-5) Urine RBC (Auto) 5-10 /hpf (0-4) Urine Hyaline Casts (Auto) 1-5 /lpf (0-5) Urine Epithelial Cells (Auto) >30 /lpf (0-5) Urine Bacteria (Auto) 4+ (NEG) Direct Bilirubin 0.3 mg/dl (0-0.2) Lipase 127 U/L (73-393) Hepatitis C Antibody Screen NEG (NEG) Bedside Lactic Acid Venous 0.59 mmol/L (0.90-1.70) Prothrombin Time 10.7 SECONDS (9.0-12.0) Prothromb Time International Ratio 1.0 (0.9-1.1) Activated Partial Thromboplast Time 32.0 SECONDS (21.0-31.0) Partial Thromboplastin Ratio 1.2 Anion Gap 6.0 mmol/L (3-11) Est Creatinine Clear Calc Drug Dose 103.5 ml/min Estimated GFR () 103.8 Estimated GFR (Non- 89.5 BUN/Creatinine Ratio 11.7 (10-20) Calcium Level 8.6 mg/dl (8.5-10.1) Total Bilirubin 0.8 mg/dl (0.2-1) Aspartate Amino Transf (AST/SGOT) 27 U/L (15-37) Alanine Aminotransferase (ALT/SGPT) 58 U/L (12-78) Alkaline Phosphatase 122 U/L (45-117) Total Protein 7.1 gm/dl (6.4-8.2) Albumin 2.6 gm/dl (3.4-5.0) Globulin 4.5 gm/dl (2.5-4.0) Albumin/Globulin Ratio 0.6 (0.9-2) Test 08/08/17 14:09 White Blood Count 16.90 K/uL (4.8-10.8) Red Blood Count 3.47 M/uL (4.2-5.4) Hemoglobin 10.5 g/dL (12.0-16.0) Hematocrit 30.5 % (37-47) Mean Corpuscular Volume 87.9 fL (80-100) Mean Corpuscular Hemoglobin 30.3 pg (25-34) Mean Corpuscular Hemoglobin Concent 34.4 g/dl (32-36) Platelet Count 356 K/uL (130-400) Mean Platelet Volume 9.4 fL (7.4-10.4) Neutrophils (%) (Auto) 80.3 % Lymphocytes (%) (Auto) 14.3 % Monocytes (%) (Auto) 4.1 % Eosinophils (%) (Auto) 0.7 % Basophils (%) (Auto) 0.2 % Neutrophils # (Auto) 13.58 K/uL (1.4-6.5) Lymphocytes # (Auto) 2.41 K/uL (1.2-3.4) Monocytes # (Auto) 0.70 K/uL (0.11-0.59) Eosinophils # (Auto) 0.11 K/uL (0-0.5) Basophils # (Auto) 0.04 K/uL (0-0.2) RDW Standard Deviation 45.1 fL (36.4-46.3) RDW Coefficient of Variation 14.1 % (11.5-14.5) Immature Granulocyte % (Auto) 0.4 % Immature Granulocyte # (Auto) 0.06 K/uL (0.00-0.02) Date/Time Source Procedure Growth Status 08/06/17 20:45 Blood Blood Culture - Preliminary NO GROWTH TO DATE. Resulted 08/06/17 14:40 Urine , Clean Catch Urine Culture - Final Klebsiella Pneumoniae Complete Medical Emergencies . Who to Call and When: Medical Emergencies: If at any time you feel your situation is an emergency, please call 911 immediately. . Non-Emergent Contact Non-Emergency issues call your: Primary Care Provider Call Non-Emergent contact if: you have a fever, your pain is not controlled, your pain is worsening . . "Provider Documentation" section prepared by Chuckie Ballard. . VTE Core Measure Inpt VTE Proph given/why not?: Enoxaparin (Lovenox)SQ
--- NOTE | 2017-08-08 14:53 | Discharge Summary ---
Discharge Summary Date of Service Aug 08, 2017. Discharge Summary Admission Date: Aug 06, 2017 at 19:08 Discharge Date: Aug 08, 2017 Discharge Disposition: Home Principal Diagnosis: pyelonephritis, Klebsiella in urine, Hypokalemia Medication Reconciliation New Medications: Ciprofloxacin (Ciprofloxacin HCl) 500 Mg Tab 500 MG PO Q12H for 7 Days, #14 TAB Continued Medications: Ascorbic Acid (Ascorbic Acid) 500 Mg Tab 500 MG PO DAILY, TAB Docusate Sodium (Colace) 100 Mg Cap 1 CAP PO DAILY, CAP Ferrous Sulfate (Iron) 325 Mg Tab 1 TAB PO DAILY Hydrochlorothiazide (Hctz) 25 Mg Tab 25 MG PO HS, TAB Ibuprofen (Motrin) 600 Mg Tab 600 MG PO BID, TAB PRN Lisinopril (Lisinopril) 20 Mg Tab 1 TAB PO HS Multivitamin (Multivitamin) Tab 1 TAB PO DAILY, TAB Admission Information HPI (per Admitting provider): This is a 62yo F with PMH of HTN, osteoarthritis and diverticulitis who presents with LLQ abdominal pain x 3 days. Patient is here visiting family and was in normal state of health until Thursday night, when she experienced sudden onset LLQ pain that is sharp and constant, non-radiating. Associated with nausea , vomiting, low grade fever and chills. Decreased PO intake 2/2 nausea. Came to ED for further evaluation. Denies fever, chills, lightheadedness, chest pain, SOB, vomiting, flank pain, urinary symptoms, constipation/diarrhea or LE swelling. Physical Exam (per Admitting): General Appearance: no apparent distress, + obese Head: normocephalic, atraumatic Eyes: normal inspection, PERRL, sclerae normal ENT: normal ENT inspection, hearing grossly normal, pharynx normal (dry mucous membranes) Neck: supple, no JVD, trachea midline Respiratory/Chest: chest non-tender, lungs clear, normal breath sounds, no respiratory distress, no accessory muscle use Cardiovascular: regular rate, rhythm, normal peripheral pulses, + systolic murmur (heard best at [facility]) Abdomen/GI: soft, no organomegaly, + tenderness (Mild LLQ, suprapubic tenderness ) Back: + pertinent finding (No CVA tenderness) Extremities/Musculoskelatal: normal inspection, no calf tenderness, normal capillary refill, no pedal edema Neurologic/Psych: no motor/sensory deficits, alert, normal mood/affect, oriented x 3 Skin: normal color, warm/dry, no rash Hospital Course This is a 62yo F with PMH of HTN, osteoarthritis and diverticulitis who presents with LLQ abdominal pain x 3 days and was found to have bilateral pyelonephritis CT abdomen and pelvis with IV contrast 08/06/17 Lung bases: The heart is normal in size and without pericardial effusion. The lung bases are clear noting dependent atelectasis. There is a small hiatal hernia. Liver: The contrast-enhanced liver is enlarged, measuring 21.5 cm in length. The liver demonstrates diffusely diminished attenuation consistent with hepatic steatosis. There is minimal central intrahepatic biliary ductal dilatation. The hepatic veins and portal veins are patent. Numerous calcified granulomas are identified. Gallbladder: Not identified and presumed surgically absent. Spleen: Normal in size and attenuation. There are numerous calcified splenic granulomas. Pancreas: Unremarkable. Adrenal glands: Unremarkable. Kidneys: The contrast enhanced kidneys are normal in size and without hydronephrosis. There is heterogeneous perfusion of both kidneys, left greater than right. There is associated left-sided perinephric stranding and trace perinephric fluid. The appearance suggests pyelonephritis. There is a 2.8 cm low-attenuation focus in the interpolar left kidney seen on image #[id number]. Abdominal vasculature: The abdominal aorta is normal in course and caliber noting scattered foci of atherosclerotic calcification. Bowel: There is moderate colonic diverticulosis without CT evidence of acute diverticulitis. No bowel obstruction is seen. The appendix is well-visualized and normal. Peritoneum: There is no intraperitoneal free air or abdominal ascites. Lymphadenopathy: None. Pelvic viscera: The bladder is normal as visualized. The uterus is enlarged and contains numerous fibroids. No adnexal lesion is seen. Skeletal structures: The skeletal structures are osteopenic. Degenerative change is present throughout the lumbosacral spine. No lytic or blastic lesions are seen. IMPRESSION: 1. There is heterogeneous perfusion of both kidneys, left greater than right with associated left-sided perinephric stranding and trace perinephric fluid. The appearance suggests bilateral pyelonephritis. Correlation with clinical findings and urinalysis will be required. 2. There is a 2.8 cm low-attenuation focus present in the interpolar left kidney. Although this could represent a complex cyst, the appearance is concerning for phlegmonous change/developing abscess. Mass is considered much less likely. Follow-up renal ultrasound in several weeks time is recommended to document resolution. 3. Moderate colonic diverticulosis without CT evidence of acute diverticulitis Urine Culture 08/06/17 1. KLEBSIELLA PNEUMONIAE Target Route Dose RX AB Cost M.I.C. IQ ------ ----- ------ -- ------ -------- - ------ TRIMET/SULFA S <=2/38 AMPICILLIN/SUL S <=8/4 CEFAZOLIN S <=8 CEFOXITIN S <=8 CEFOTAXIME S <=2 CEFTRIAXONE S <=1 CEFEPIME S <=4 CEFUROXIME S <=4 IMIPENEM S <=1 GENTAMICIN S <=4 TOBRAMYCIN S <=4 AMIKACIN S <=16 CIPROFLOXACIN S <=1 LEVOFLOXACIN S <=2 ERTAPENEM S <=1 NITROFURANTOIN I 64 PIP/TAZO S <=16 Patient received Ceftriaxone on hospital presentation on 08/06/17. Was then switched to Zosyn on 08/07/17 because urine culture differentiated as gram negative bacilli. Zosyn stopped on 08/08/17 as urine culture speciated as pansesnitive Klebsiella and patient is to transition to oral Ciprofloxacin 500 mg every 12 hours for 7 days Patient's WBC trended down from admission 18.56 to 16.9 Not fevers and no pain. Is well appearing and no distress. Also Hypokalemia with serum potassium 3.2, given oral potassium Patient is to follow with her primary care doctor in [place], and will need follow up renal ultrasound in several weeks time is recommended to document resolution of the 2.8 cm focus of left kideny Patient is instructed to return to the emergency room if she experiences fevers , or abdominal pain, or unusual diarrhea. Total time spent on discharge = 60 minutes This includes examination of the patient, discharge planning, medication reconciliation, and communication with other providers. Discharge Instructions see above
[2017-08-08 14:57] VITALS: BP 166/86; PULSE 95; TEMP 36.6; O2SAT 97
[2017-08-08 15:08] LABS: POTASSIUM 3.2 mmol/L (3.5-5.1)
[2017-08-08 15:26] VITALS: BP 166/86; PULSE 95; TEMP 36.6; O2SAT 97
[2017-08-08] MEDS: POTASSIUM CHLR 10 MEQ / WTR 10 MEQ in PREMIXED WATER 100 ML IV SCH ×2 (16:14→17:19)
== END 2017-08-08 19:05 | disposition home or self-care (01) ==
LOC: C.EDB 13:44 → C.MS2W 19:08 → ENRESERV 19:34
PROVIDERS: ADMIT Internal Medicine; ATTEND Hospitalist
DX: N12 Tubulo-interstitial nephritis, not specified as acute or chronic (principal); N39.0 Urinary tract infection, site not specified; Z90.49 Acquired absence of other specified parts of digestive tract; I10 Essential (primary) hypertension; M19.90 Unspecified osteoarthritis, unspecified site; K57.30 Diverticulosis of large intestine without perforation or abscess without bleeding; E87.6 Hypokalemia

== ENCOUNTER 2021-02-18 18:07 | Inpatient (IN) ==
[2021-02-18 19:59] LABS: Basophils # (auto) 0.04 K/uL (0-0.2); Basophils % (auto) 0.2 %; Eosinophils # (auto) 0.07 K/uL (0-0.5); Eosinophils % (auto) 0.4 %; Hematocrit (blood only) 33.7 % (37-47); Immature Granulocytes % (auto) 0.6 %; Lymphocytes # (auto) 2.67 K/uL (1.2-3.4); Lymphocytes % (auto) 16.6 %; Mean Corpuscular Hemoglobin 29.7 pg (25-34); Mean Corpuscular Hgb Conc 32.6 g/dL (32-36); Mean Corpuscular Volume 91.1 fL (80-100); Mean Platelet Volume 10.3 fL (7.4-10.4); Monocytes # (auto) 1.07 K/uL (0.11-0.59); Monocytes % (auto) 6.6 %; Neutrophils # (auto) 12.17 K/uL (1.4-6.5); Neutrophils % (auto) 75.6 %; Platelet Count 444 K/uL (130-400); RDW Coefficient of Variation 14.7 % (11.5-14.5); White Blood Count 16.12 K/uL (4.8-10.8)
[2021-02-18 20:15] LABS: Alanine Aminotransferase 26 U/L (12-78); Albumin Level 3.2 gm/dl (3.4-5.0); Aspartate Aminotransferase 12 U/L (15-37); BUN Creatinine Ratio 15.6 (10-20); Blood Urea Nitrogen 25 mg/dl (7-18); Calcium 9.7 mg/dl (8.5-10.1); Carbon Dioxide 22 mmol/L (21-32); Chloride 107 mmol/L (98-107); Est GFR (Non-African American) 33.7 ml/min; Glucose 134 mg/dl (70-99); Lipase 125 U/L (73-393); Potassium 3.9 mmol/L (3.5-5.1); Sodium 139 mmol/L (136-145)
[2021-02-18 20:18] LABS: Albumin Globulin Ratio 0.5 (0.9-2); Alkaline Phosphatase 94 U/L (45-117); Bilirubin,Total 1.6 mg/dl (0.2-1); Globulin 5.9 gm/dl (2.5-4.0); Total Protein 9.1 gm/dl (6.4-8.2)
[2021-02-18] MEDS ORDERED: MoRPHine SULFATE 4 MG/ML 1 ML CARP\\VIAL IV STA (20:58)
[2021-02-18] MEDS ORDERED: ONDANSETRON INJ 2 MG/ML 2 ML VIAL IV STA (20:58)
[2021-02-18] MEDS ORDERED: SODIUM CHLORIDE 0.9% 1000ML 1,000 ML IV ONE (20:58)
[2021-02-18 22:12] LABS: Appearance Urine Clear (Clear); Bacteria Urine Automated 4+ (Negative); Bilirubin Urine Negative (Negative); Blood Urine Trace (Negative); Color Urine Yellow; Glucose Urine UA Negative (Negative); Ketones Urine Negative (Negative); Leukocyte Esterase Urine 1+ (Negative); Nitrite Urine Positive (Negative); Protein Urine Trace (Negative); RBC Urine Automated 0-4 /hpf (0-4); Specific Gravity Urine 1.012 (1.000-1.030); Urobilinogen Urine Negative (Negative); WBC Urine Automated >30 /hpf (0-5); pH Urine 5.5 (4.5-7.5)
[2021-02-18] MEDS ORDERED: cefTRIAXone SODIUM 1,000 MG/50 ML BAG IV STA (22:13)
[2021-02-18] MEDS ORDERED: metroNIDAZOLE 500 MG/100 ML BAG IV STA (22:13)
--- NOTE | 2021-02-19 00:47 | Emergency Department Note ---
History of Present Illness General Chief Complaint: Abdominal Pain Stated Complaint: ABDOMINAL PAIN Time Seen by Provider: 02/18/21 20:55 History of Present Illness Provider Complaint: abdominal pain Onset (ago): 2 day(s) Pain Consistency: constant Location: LLQ Severity: mild Maximum Pain Intensity: 3 Current Pain Intensity: 3 Quality: + stabbing, + aching, + sharp and + dull Relieved By: + nothing Exacerbated By: + nothing Associated Symptoms: + nausea; no vomiting, no diarrhea, no fever, no chills, no constipation, no dysuria, no hematemesis, no hematochezia, no melena, no hematuria, no anorexia, no syncope, no headache, no neck pain, no back pain, no chest pain, no weakness, no breathing difficulty and no numbness Home Medications Medication Instructions Recorded Confirmed Type Osteobiflex 1 tab PO BID 02/18/21 02/18/21 History ascorbic acid buffered 1,000 tab PO DAILY 02/18/21 02/18/21 History diltiazem HCl 120 mg PO DAILY 02/18/21 02/18/21 History ferrous sulfate 325 mg PO DAILY 02/18/21 02/18/21 History megestrol 40 mg PO TID 02/18/21 02/18/21 History metformin 1,000 mg PO BID 02/18/21 02/18/21 History metoprolol tartrate 100 mg PO BID 02/18/21 02/18/21 History multivitamin [Multiple Vitamin] 1 tab PO DAILY 02/18/21 02/18/21 History pantoprazole 40 mg PO BID 02/18/21 02/18/21 History potassium chloride 20 meq PO BID 02/18/21 02/18/21 History torsemide 20 mg PO BID 02/18/21 02/18/21 History Allergies Allergy/AdvReac Type Severity Reaction Status Date / Time codeine AdvReac Severe N/V Unverified 02/18/21 22:16 Past Med/Surg History Medical History (Updated 02/19/21 @ 00:47 by Bakari Woods) H/O diverticulitis of colon HTN (hypertension) No pertinent family history Pyelonephritis Sepsis Surgical History (Updated 02/19/21 @ 00:44 by Bakari Woods) S/P cholecystectomy S/P left oophorectomy Social History Smoking Status: Never smoker Preferred Language: American Feels Safe at Home: Yes Review of Systems A total of 10 systems reviewed and were otherwise negative Physical Exam Vital Signs: Vital Signs - 24 hr 02/18/21 18:38 02/18/21 19:54 02/18/21 20:46 Temperature 37.4 C Temperature Source Oral Pulse Rate 96 H 104 H Pulse Rate [Right Finger] 105 H Pulse Rate from Sp O2 Sensor 103 H Respiratory Rate 20 16 25 H Respiratory Effort / Characteristics Non-Labored Sponta neous Respiratory Depth Normal Blood Pressure 130/74 134/88 Blood Pressure [Ri ght Arm] 123/92 Blood Pressure Ketty n 92 103 Blood Pressure Ketty n [Right Arm] 102 Pulse Oximetry 99 98 99 Oxygen Delivery Me thod Room Air Room Air Sepsis Recent Feve r Within 48 Hours No Sepsis New/Unexpla ined Change in Men janel Status N/A Sepsis Action Take n by Nursing No Action Required 02/18/21 21:00 02/18/21 21:18 02/18/21 21:20 Temperature Temperature Source Pulse Rate 91 H 106 H 112 H Pulse Rate [Right Finger] Pulse Rate from Sp O2 Sensor 98 H 114 H 104 H Respiratory Rate 31 H 18 25 H Respiratory Effort / Characteristics Respiratory Depth Blood Pressure 144/93 H Blood Pressure [Ri ght Arm] Blood Pressure Ketty n 110 Blood Pressure Ketty n [Right Arm] Pulse Oximetry 98 98 99 Oxygen Delivery Me thod Sepsis Recent Feve r Within 48 Hours Sepsis New/Unexpla ined Change in Men janel Status Sepsis Action Take n by Nursing 02/18/21 21:30 02/18/21 21:47 02/18/21 22:02 Temperature Temperature Source Pulse Rate 113 H 97 H 113 H Pulse Rate [Right Finger] Pulse Rate from Sp O2 Sensor 120 H 108 H 127 H Respiratory Rate 27 H 29 H 25 H Respiratory Effort / Characteristics Respiratory Depth Blood Pressure 154/89 H Blood Pressure [Ri ght Arm] Blood Pressure Ketty n 110 Blood Pressure Ketty n [Right Arm] Pulse Oximetry 97 97 98 Oxygen Delivery Me thod Sepsis Recent Feve r Within 48 Hours Sepsis New/Unexpla ined Change in Men janel Status Sepsis Action Take n by Nursing 02/18/21 22:10 Temperature Temperature Source Pulse Rate 110 H Pulse Rate [Right Finger] Pulse Rate from Sp O2 Sensor 122 H Respiratory Rate 35 H Respiratory Effort / Characteristics Respiratory Depth Blood Pressure Blood Pressure [Ri ght Arm] Blood Pressure Ketty n Blood Pressure Ketty n [Right Arm] Pulse Oximetry 98 Oxygen Delivery Me thod Sepsis Recent Feve r Within 48 Hours Sepsis New/Unexpla ined Change in Men janel Status Sepsis Action Take n by Nursing Physical Exam: Physical Exam GENERAL: She is oriented to person, place, and time. She appears well-developed and well-nourished. She does not appear distressed. HENT: Exam performed. -Head: Normocephalic and atraumatic. -Right Ear: External ear normal. No mastoid tenderness. -Left Ear: External ear normal. No mastoid tenderness. -Mouth/Throat: The oropharynx is clear and moist. No trismus in the jaw. No dental abscesses or uvula swelling. No oropharyngeal exudate or tonsillar abscesses. EYES: Conjunctivae and EOM are normal. Pupils are equal, round, and reactive to light. Right eye exhibits no discharge. Left eye exhibits no discharge. No scleral icterus. NECK: Normal range of motion. Neck supple. No JVD present. No spinous process tenderness present. No carotid bruit present. No rigidity. No tracheal deviation and normal range of motion present. No Brudzinski's sign and no Kernig's sign noted. CV: Normal rate, regular rhythm, normal heart sounds and intact distal pulses. There is no peripheral edema. Palpable radial pulses bue. PULM/CHEST: Effort normal and breath sounds normal. No respiratory distress. No stridor. She has no wheezes. She has no rales. -Chest Wall: She exhibits no tenderness. ABD: The abdomen is soft. Bowel sounds are normal. She has no distension. No mass is present. There is tenderness to palpation of the left lower quadrant. There is no rebound, no guarding, no Gama's sign and no tenderness at McBurney's point. Rovsig negative MUSC/SKEL: Normal range of motion. There is no peripheral edema, tenderness or deformity. LYMPH: No cervical adenopathy. NEURO: She is alert and oriented to person, place, and time. She has normal strength. No cranial nerve deficit or sensory deficit. Coordination and gait normal. GCS eye subscore is 4. GCS verbal subscore is 5. GCS motor subscore is 6. Cerebellar tests wnl. SKIN: Skin is warm and dry. She is not diaphoretic. PSYCH: She has a normal mood and affect. Behavior is normal. Judgment and thought content normal. Course Course 2054: The patient was evaluated in room C2. A complete history and physical exam was performed Cardiac monitoring: An order was placed for continuous cardiac monitoring. The monitor shows a rate of 110 with sinus rhythm 2215: Vital signs stable. Labs show leukocytosis 16. Creatinine is 1.61. This elevated from her previous creatinines in the system. Patient does have CT findings of diverticulitis. Patient states she has a history of becoming septic after a bad pyelonephritis where she had to be admitted and was on the ICU on a ventilator for a week. Patient be treated with Rocephin and Flagyl [facility] team Dr. Caldwell notified. Administered Medications Discontinued Medications Sodium Chloride (Nss 1000ml) 1,000 mls @ 999 mls/hr IV .Q1H1M ONE Stop: 02/18/21 21:58 Last Infusion: 02/19/21 00:05 Dose: 0 mls/hr Documented by: [id number] Admin: 02/18/21 21:59 Dose: 999 mls/hr Documented by: [id number] Metronidazole (Flagyl) 500 mg in 100 mls @ 100 mls/hr IV NOW STA Stop: 02/18/21 23:12 Last Admin: 02/18/21 23:36 Dose: 100 mls/hr Documented by: [id number] Ceftriaxone Sodium (Rocephin) 1,000 mg in 50 mls @ 100 mls/hr IV NOW STA Stop: 02/18/21 22:42 Last Infusion: 02/19/21 00:05 Dose: 0 mls/hr Documented by: [id number] Admin: 02/18/21 22:22 Dose: 100 mls/hr Documented by: [id number] Morphine Sulfate (Morphine Sulfate 4 Mg/Ml 1 Ml Carp\Vial) 4 mg IV NOW STA Stop: 02/18/21 20:59 Last Admin: 02/18/21 21:33 Dose: Not Given Documented by: [id number] Ondansetron HCl (Ondansetron Inj 2 Mg/Ml 2 Ml Vial) 4 mg IV NOW STA Stop: 02/18/21 20:59 Last Admin: 02/18/21 21:33 Dose: Not Given Documented by: [id number] Medical Decision Making Laboratory Data Result diagrams: 02/18/21 19:44 02/18/21 19:44 Lab Results 02/18/21 02/18/21 02/18/21 Range/Units 19:44 19:44 21:25 WBC 16.12 H (4.8-10.8) K/uL RBC 3.70 L (4.2-5.4) M/uL Hgb 11.0 L (12.0-16.0) g/dL Hct 33.7 L (37-47) % MCV 91.1 (80-100) fL MCH 29.7 (25-34) pg MCHC 32.6 (32-36) g/dL RDW Std Deviation 49.0 H (36.4-46.3) fL RDW Coeff of Shelli 14.7 H (11.5-14.5) % Plt Count 444 H (130-400) K/uL MPV 10.3 (7.4-10.4) fL Immature Gran % (Auto) 0.6 % Neut % (Auto) 75.6 % Lymph % (Auto) 16.6 % [place] % (Auto) 6.6 % Eos % (Auto) 0.4 % Baso % (Auto) 0.2 % Neut # (Auto) 12.17 H (1.4-6.5) K/uL Lymph # (Auto) 2.67 (1.2-3.4) K/uL [place] # (Auto) 1.07 H (0.11-0.59) K/uL Eos # (Auto) 0.07 (0-0.5) K/uL Baso # (Auto) 0.04 (0-0.2) K/uL Immature Gran # (Auto) 0.10 H (0.00-0.02) K/uL Sodium 139 (136-145) mmol/L Potassium 3.9 (3.5-5.1) mmol/L Chloride 107 (98-107) mmol/L Carbon Dioxide 22 (21-32) mmol/L Anion Gap 10.0 (3-11) BUN 25 H (7-18) mg/dl Creatinine 1.61 H (0.6-1.2) mg/dl Est Cr Clr Drug Dosing Not Reportable Est GFR ( Amer) 39.0 ml/min Est GFR (Non-Af Amer) 33.7 ml/min BUN/Creatinine Ratio 15.6 (10-20) Glucose 134 H (70-99) mg/dl Calcium 9.7 (8.5-10.1) mg/dl Total Bilirubin 1.6 H (0.2-1) mg/dl AST 12 L (15-37) U/L ALT 26 (12-78) U/L Alkaline Phosphatase 94 (45-117) U/L Total Protein 9.1 H (6.4-8.2) gm/dl Albumin 3.2 L (3.4-5.0) gm/dl Globulin 5.9 H (2.5-4.0) gm/dl Albumin/Globulin Ratio 0.5 L (0.9-2) Lipase 125 (73-393) U/L Urine Color Yellow Urine Appearance Clear (Clear) Urine pH 5.5 (4.5-7.5) Ur Specific [place] 1.012 (1.000-1.030) Urine Protein Trace H (Negative) Urine Glucose (UA) Negative (Negative) Urine Ketones Negative (Negative) Urine Blood Trace H (Negative) Urine Nitrite Positive A (Negative) Urine Bilirubin Negative (Negative) Urine Urobilinogen Negative (Negative) Ur Leukocyte Esterase 1+ H (Negative) Urine WBC (Auto) >30 H (0-5) /hpf Urine RBC (Auto) 0-4 (0-4) /hpf U Hyaline Cast (Auto) 5-10 H (0-5) /lpf U Epithel Cells (Auto) 10-20 H (0-5) /lpf Urine Bacteria (Auto) 4+ H (Negative) COVID-19 Eval Order SARS-CoV-2 (PCR) (Negative) 02/18/21 02/18/21 Range/Units 22:26 22:26 WBC (4.8-10.8) K/uL RBC (4.2-5.4) M/uL Hgb (12.0-16.0) g/dL Hct (37-47) % MCV (80-100) fL MCH (25-34) pg MCHC (32-36) g/dL RDW Std Deviation (36.4-46.3) fL RDW Coeff of Shelli (11.5-14.5) % Plt Count (130-400) K/uL MPV (7.4-10.4) fL Immature Gran % (Auto) % Neut % (Auto) % Lymph % (Auto) % [place] % (Auto) % Eos % (Auto) % Baso % (Auto) % Neut # (Auto) (1.4-6.5) K/uL Lymph # (Auto) (1.2-3.4) K/uL [place] # (Auto) (0.11-0.59) K/uL Eos # (Auto) (0-0.5) K/uL Baso # (Auto) (0-0.2) K/uL Immature Gran # (Auto) (0.00-0.02) K/uL Sodium (136-145) mmol/L Potassium (3.5-5.1) mmol/L Chloride (98-107) mmol/L Carbon Dioxide (21-32) mmol/L Anion Gap (3-11) BUN (7-18) mg/dl Creatinine (0.6-1.2) mg/dl Est Cr Clr Drug Dosing Est GFR ( Amer) ml/min Est GFR (Non-Af Amer) ml/min BUN/Creatinine Ratio (10-20) Glucose (70-99) mg/dl Calcium (8.5-10.1) mg/dl Total Bilirubin (0.2-1) mg/dl AST (15-37) U/L ALT (12-78) U/L Alkaline Phosphatase (45-117) U/L Total Protein (6.4-8.2) gm/dl Albumin (3.4-5.0) gm/dl Globulin (2.5-4.0) gm/dl Albumin/Globulin Ratio (0.9-2) Lipase (73-393) U/L Urine Color Urine Appearance (Clear) Urine pH (4.5-7.5) Ur Specific [place] (1.000-1.030) Urine Protein (Negative) Urine Glucose (UA) (Negative) Urine Ketones (Negative) Urine Blood (Negative) Urine Nitrite (Negative) Urine Bilirubin (Negative) Urine Urobilinogen (Negative) Ur Leukocyte Esterase (Negative) Urine WBC (Auto) (0-5) /hpf Urine RBC (Auto) (0-4) /hpf U Hyaline Cast (Auto) (0-5) /lpf U Epithel Cells (Auto) (0-5) /lpf Urine Bacteria (Auto) (Negative) COVID-19 Eval Order Covid19 at [facility] SARS-CoV-2 (PCR) NEGATIVE (Negative) Imaging Data Radiologist's Impression: PreliminaryFindingsOnly See Final Report For Complete Findings CT ABDOMEN & PELVIS Without Contrast: Sigmoid diverticulitis. No abscess or perforation. A1 cmhyperdense right renal lesion is present. Recommend MRI or CT without and with intravenous contrast. Auterine fibroid is noted. No obstruction. No fracture. Radiologist: Alysha Trammell MD Study ready at 21:22 and initial results transmitted at 21:43 MDM Narrative Vital signs stable. Labs show leukocytosis 16. Creatinine is 1.61. This elevated from her previous creatinines in the system. Patient does have CT findings of diverticulitis. Patient states she has a history of becoming septic after a bad pyelonephritis where she had to be admitted and was on the ICU on a ventilator for a week. Patient be treated with Rocephin and Flagyl IV brought into [facility] team Dr. aCldwell notified. Impression & Plan Diverticulitis, MIRIAN (acute kidney injury) Discharge Plan Visit Data Chief Complaint: Abdominal Pain Stated Complaint: ABDOMINAL PAIN ED Provider: Bakari Woods Discharge Problem: Diverticulitis, MIRIAN (acute kidney injury) Patient Disposition: Admitted As Inpatient Forms Stand Alone Forms: My [facility] Prescriptions Prescriptions: No Action diltiazem HCl 120 mg tablet 120 mg PO DAILY RF: 0 metoprolol tartrate 100 mg tablet 100 mg PO BID RF: 0 torsemide 20 mg tablet 20 mg PO BID RF: 0 pantoprazole 40 mg tablet,delayed release (DR/EC) 40 mg PO BID RF: 0 megestrol 40 mg tablet 40 mg PO TID RF: 0 metformin 1,000 mg tablet 1,000 mg PO BID RF: 0 potassium chloride 20 mEq tablet,ER particles/crystals 20 meq PO BID RF: 0 Osteobiflex 1 tab PO BID RF: 0 multivitamin [Multiple Vitamin] Tablet 1 tab PO DAILY RF: 0 ascorbic acid buffered 1,000 mg Tablet Extended Release 1,000 tab PO DAILY RF: 0 ferrous sulfate 325 mg (65 mg iron) Tablet,Delayed Release (Dr/Ec) 325 mg PO DAILY RF: 0 Referrals Referrals: PCP,NO [Primary Care Provider] -
[2021-02-19] MEDS ORDERED: DEXTROSE 50% 50 ML SYRINGE IV PRN (01:22)
[2021-02-19] MEDS ORDERED: SODIUM CHLORIDE 0.9% 1000ML 1,000 ML IV SCH (01:22)
[2021-02-19] MEDS ORDERED: GLUCAGON FOR INJ 1 MG VIAL SQ PRN (01:22)
[2021-02-19] MEDS ORDERED: CARBOHYDRATES FOR HYPOGLYCEMIA PO PRN (01:22)
[2021-02-19] MEDS ORDERED: PIPERACILL/TAZOBAC CONSULT ACTIVE PRN (01:22)
[2021-02-19] MEDS ORDERED: GLUCOSE 10 TABS/TUBE PO PRN (01:22)
[2021-02-19] MEDS ORDERED: GLUCOSE 40% GEL 15 GM TUBE PO PRN (01:22)
[2021-02-19] MEDS ORDERED: PNEUMOCOCCAL POLYSACCHARIDES 25 MCG/0.5 ML VIAL/SYR IM ONE (01:56)
--- NOTE | 2021-02-19 02:08 | History & Physical Report ---
Date of Service February 19, 2021 The patient was seen and examined on February 18, 2021 Assessment & Plan (1) Diverticulitis: Sigmoid diverticulitis/urinary tract infection- Follow urine culture and sensitivity Follow blood culture and sensitivity Place on Zosyn 3.375 mg IV every 8 hours Zofran 4 mg IV every 6 hours as needed NSS at 80 mils per hour x1 L Present on Admission?: Yes (2) Urinary tract infection: See above Present on Admission?: Yes (3) Diabetes mellitus: Hold Metformin Placed on Accu-Cheks before meals and at bedtime with NovoLog coverage per scale Check hemoglobin A1c Present on Admission?: Yes (4) HTN (hypertension): Continue diltiazem and Toprol tartrate with hold parameters. Present on Admission?: Yes (5) CHF (congestive heart failure): Hold torsemide and potassium chloride Present on Admission?: Yes (6) Renal lesion: 1 cm hyperdense right renal lesion Will need follow-up imaging Present on Admission?: Yes (7) MIRIAN (acute kidney injury): Creatinine 1.61 upon admission, with baseline 0.73 IV fluids as noted above, repeat laboratories in a.m. Hold torsemide and potassium overnight Present on Admission?: Yes (8) Osteoarthritis: Continue Osteo Bi-Flex Present on Admission?: Yes (9) GERD (gastroesophageal reflux disease): Continue pantoprazole 40 mg p.o. twice daily Present on Admission?: Yes Admission and Anticipated Discharge Date Admission Date: February 18, 2021 History of Present Illness Chief Complaint: The patient presents to the ED with complaint of LLQ abdominal and suprapubic pain Primary Care Provider: NO PCP The patient is a 65yo female with a PMH including HTN, diverticulitis, DM, iron deficiency, OA, GERD, morbid obesity and CHF. The patient presents with symptoms as noted above work-up in the emergency department included a CT scan of abdomen pelvis which showed sigmoid diverticulitis, a right renal 1 cm hyperdense lesion, and uterine fibroid. Pertinent laboratories: WBC 16.12, platelets 444, creatinine 1.61, total bilirubin 1.6, total protein 9.2, albumin 3.2 and abnormal urine analysis. In the emergency department, she was prescribed ceftriaxone 1 g IV, Flagyl 500 mg IV, normal saline 1 L, Zofran 4 mg IV and morphine sulfate 4 mg IV by the ED. Allergies Allergy/AdvReac Type Severity Reaction Status Date / Time codeine AdvReac Severe N/V Unverified 02/18/21 22:16 Home Medications Medication Instructions Recorded Confirmed Type Osteobiflex 1 tab PO BID 02/18/21 02/18/21 History ascorbic acid buffered 1,000 tab PO DAILY 02/18/21 02/18/21 History diltiazem HCl 120 mg PO DAILY 02/18/21 02/18/21 History ferrous sulfate 325 mg PO DAILY 02/18/21 02/18/21 History megestrol 40 mg PO TID 02/18/21 02/18/21 History metformin 1,000 mg PO BID 02/18/21 02/18/21 History metoprolol tartrate 100 mg PO BID 02/18/21 02/18/21 History multivitamin [Multiple Vitamin] 1 tab PO DAILY 02/18/21 02/18/21 History pantoprazole 40 mg PO BID 02/18/21 02/18/21 History potassium chloride 20 meq PO BID 02/18/21 02/18/21 History torsemide 20 mg PO BID 02/18/21 02/18/21 History Past Med/Surg History Medical History (Updated 02/19/21 @ 02:26 by Ryan Garcia MD) CHF (congestive heart failure) Diabetes mellitus GERD (gastroesophageal reflux disease) H/O diverticulitis of colon HTN (hypertension) No pertinent family history Pyelonephritis Sepsis Surgical History S/P cholecystectomy S/P left oophorectomy Family History Other No known health problems Social History Smoking Status: Never smoker Second Hand Exposure: No; Do You Dip or Chew Tobacco: No; Hx Alcohol Use: No Hx Substance Use: No Preferred Language: Grenadian Communication Ability: Effective Freelance Translator Required: No Beliefs That Will Affect Care: None Current Living Situation: Spouse Other Information That Helps Us Care for You: No Feels Safe at Home: Yes Safety Concerns: Feels Safe At This Time Assistive Devices: Walker Review of Systems Review of Systems: The patient denies chest pain, palpitations, shortness of breath, dyspnea on exertion, cough, lower extremity swelling, sore throat, fevers, chills, sweats, nausea, vomiting, diarrhea, constipation, blood in urine or stool, dysuria, urinary frequency or urgency, lightheadedness, dizziness, headache, memory loss, loss of consciousness, rash, abnormal bruising or bleeding, imbalance, focal weakness, numbness or tingling in arms or legs, generalized arthralgias or myalgias, back or neck pain, or night sweats. The review of systems is otherwise negative other than for that already noted above, and at least 10 systems have been reviewed. Physical Exam Physical Exam: The patient is awake, alert and oriented 3, well developed and well nourished, normocephalic and atraumatic, lying in bed and in no acute distress. HEENT--PERRL, EOMI, mucous membranes and oropharynx dry. Neck--supple. No JVD. No bruits. Thyroid normal, trachea midline, no henry opathy. Heart--normal S1 and S2. No murmurs, rubs or gallops. Lungs--clear bilaterally, no respiratory distress, no accessory muscle use. Abdomen--normal bowel sounds and soft. Nontender. Nondistended. Morbid obesity Extremities--no cyanosis or clubbing. No edema. Dermatologic--normal skin turgor, normal color, no abnormal lymph nodes, no rash. Neurologic--cranial nerves II through XII grossly intact. Rheumatologic--normal range of motion. Psychiatric--normal affect. Results & Data Results & Data ([facility]) Vital Signs (Past 12 Hours) Vital Signs Temp Pulse Pulse Resp BP BP Pulse Ox 02/19/21 01:26 98.6 F 121 H 24 146/76 H 99 02/19/21 00:58 101 H 20 149/81 H 98 02/18/21 22:10 110 H 35 H 98 02/18/21 22:02 113 H 25 H 98 02/18/21 21:47 97 H 29 H 154/89 H 97 02/18/21 21:30 113 H 27 H 97 02/18/21 21:20 112 H 25 H 99 02/18/21 21:18 106 H 18 98 02/18/21 21:00 91 H 31 H 144/93 H 98 02/18/21 20:46 104 H 25 H 134/88 99 02/18/21 19:54 105 H 16 123/92 98 02/18/21 18:38 99.3 F 96 H 20 130/74 99 Laboratory Results Laboratory Results WBC 16.12 K/uL (4.8-10.8) H 02/18/21 19:44 RBC 3.70 M/uL (4.2-5.4) L 02/18/21 19:44 Hgb 11.0 g/dL (12.0-16.0) L 02/18/21 19:44 Hct 33.7 % (37-47) L 02/18/21 19:44 MCV 91.1 fL (80-100) 02/18/21 19:44 MCH 29.7 pg (25-34) 02/18/21 19:44 MCHC 32.6 g/dL (32-36) 02/18/21 19:44 RDW Std Deviation 49.0 fL (36.4-46.3) H 02/18/21 19:44 RDW Coeff of Shelli 14.7 % (11.5-14.5) H 02/18/21 19:44 Plt Count 444 K/uL (130-400) H 02/18/21 19:44 MPV 10.3 fL (7.4-10.4) 02/18/21 19:44 Immature Gran % (Auto) 0.6 % 02/18/21 19:44 Neut % (Auto) 75.6 % 02/18/21 19:44 Lymph % (Auto) 16.6 % 02/18/21 19:44 Cecil % (Auto) 6.6 % 02/18/21 19:44 Eos % (Auto) 0.4 % 02/18/21 19:44 Baso % (Auto) 0.2 % 02/18/21 19:44 Neut # (Auto) 12.17 K/uL (1.4-6.5) H 02/18/21 19:44 Lymph # (Auto) 2.67 K/uL (1.2-3.4) 02/18/21 19:44 Cecil # (Auto) 1.07 K/uL (0.11-0.59) H 02/18/21 19:44 Eos # (Auto) 0.07 K/uL (0-0.5) 02/18/21 19:44 Baso # (Auto) 0.04 K/uL (0-0.2) 02/18/21 19:44 Immature Gran # (Auto) 0.10 K/uL (0.00-0.02) H 02/18/21 19:44 Sodium 139 mmol/L (136-145) 02/18/21 19:44 Potassium 3.9 mmol/L (3.5-5.1) 02/18/21 19:44 Chloride 107 mmol/L (98-107) 02/18/21 19:44 Carbon Dioxide 22 mmol/L (21-32) 02/18/21 19:44 Anion Gap 10.0 (3-11) 02/18/21 19:44 BUN 25 mg/dl (7-18) H 02/18/21 19:44 Creatinine 1.61 mg/dl (0.6-1.2) H 02/18/21 19:44 Est Cr Clr Drug Dosing Not Reportable 02/18/21 19:44 Est GFR ( Amer) 39.0 ml/min 02/18/21 19:44 Est GFR (Non-Af Amer) 33.7 ml/min 02/18/21 19:44 BUN/Creatinine Ratio 15.6 (10-20) 02/18/21 19:44 Glucose 134 mg/dl (70-99) H 02/18/21 19:44 Calcium 9.7 mg/dl (8.5-10.1) 02/18/21 19:44 Total Bilirubin 1.6 mg/dl (0.2-1) H 02/18/21 19:44 AST 12 U/L (15-37) L 02/18/21 19:44 ALT 26 U/L (12-78) 02/18/21 19:44 Alkaline Phosphatase 94 U/L (45-117) 02/18/21 19:44 Total Protein 9.1 gm/dl (6.4-8.2) H 02/18/21 19:44 Albumin 3.2 gm/dl (3.4-5.0) L 02/18/21 19:44 Globulin 5.9 gm/dl (2.5-4.0) H 02/18/21 19:44 Albumin/Globulin Ratio 0.5 (0.9-2) L 02/18/21 19:44 Lipase 125 U/L (73-393) 02/18/21 19:44 Urine Color Yellow 02/18/21 21:25 Urine Appearance Clear (Clear) 02/18/21 21:25 Urine pH 5.5 (4.5-7.5) 02/18/21 21:25 Ur Specific [place] 1.012 (1.000-1.030) 02/18/21 21:25 Urine Protein Trace (Negative) H 02/18/21 21:25 Urine Glucose (UA) Negative (Negative) 02/18/21 21:25 Urine Ketones Negative (Negative) 02/18/21 21:25 Urine Blood Trace (Negative) H 02/18/21 21:25 Urine Nitrite Positive (Negative) A 02/18/21 21:25 Urine Bilirubin Negative (Negative) 02/18/21 21:25 Urine Urobilinogen Negative (Negative) 02/18/21 21:25 Ur Leukocyte Esterase 1+ (Negative) H 02/18/21 21:25 Urine WBC (Auto) >30 /hpf (0-5) H 02/18/21 21:25 Urine RBC (Auto) 0-4 /hpf (0-4) 02/18/21 21:25 U Hyaline Cast (Auto) 5-10 /lpf (0-5) H 02/18/21 21:25 U Epithel Cells (Auto) 10-20 /lpf (0-5) H 02/18/21 21:25 Urine Bacteria (Auto) 4+ (Negative) H 02/18/21 21:25 COVID-19 Eval Order Covid19 at [facility] 02/18/21 22:26 SARS-CoV-2 (PCR) NEGATIVE (Negative) 02/18/21 22:26 Code Status & VTE Plan Code Status Full code VTE Prophylaxis Plan VTE Prophylaxis will be ordered: Yes PG Care Time/CCT Total # of Minutes Spent Total Time Spent with Patient: Total time spent is greater than 50% in coordination of care (as documented) at patient's floor/unit and/or counseling patient: Coding Level of Care Code 81901 Initial Inpt Care Lvl 3 Diagnoses Diverticulitis K57.92 Urinary tract infection N39.0 Diabetes mellitus E11.9 HTN (hypertension) I10 CHF (congestive heart failure) I50.9 Renal lesion N28.9 MIRIAN (acute kidney injury) N17.9 Osteoarthritis M19.90 GERD (gastroesophageal reflux disease) K21.9
[2021-02-19] MEDS: METOPROLOL TARTRATE 100 MG TAB PO SCH ×3 (02:39→21:23)
[2021-02-19] MEDS: PANTOprazole 40 MG TAB PO SCH ×3 (02:39→21:22)
[2021-02-19] MEDS: PIPERACILLIN/TAZOBACTAM 4.5 GM in DEXTROSE 5% 100 ML IV SCH ×3 (02:40→17:59)
[2021-02-19] MEDS: HEPARIN SOD 5,000 UNIT/0.5 ML VIAL SQ SCH ×3 (05:57→21:22)
[2021-02-19 07:48] LABS: Estimated Average Glucose 157 mg/dl; Hemoglobin A1C 7.1 % (4.5-5.6)
--- NOTE | 2021-02-19 08:21 | CT Scan Report ---
ABDOMEN AND PELVIS CT WITHOUT CONTRAST CT DOSE: 1968.20 mGy.cm HISTORY: abd pain L side, acute kidney injury kidney stone vs diverticulitis TECHNIQUE: Multiaxial CT images of the abdomen and pelvis were performed without contrast. A dose lo wering technique was utilized adhering to the principles of ALARA. COMPARISON STUDY: Abdomen and pelvis CT 08/06/2017. FINDINGS: Partially visualized 1.2 cm nodular density within the lingula on image 1. The right lung b ase is clear. No pneumoperitoneum. No pneumatosis. No suspicious lytic or blastic osseous lesions. Po ststernotomy. Scattered punctate calcified granuloma seen within the liver and spleen. The unenhanced pancreas and adrenal glands unremarkable. No renal or ureteral stones. No hydronephrosis. There is 1 .2 cm exophytic hyperdense right renal lesion. This is incompletely characterized on this noncontrast study but may represent a hyperdense cysts. Minimal bilateral perinephric edema. No retroperitoneal lymphadenopathy. Multiple uterine fibroids some of which are partially calcified are again noted. The bladder is decompressed. The bladder wall thickening with adjacent fat stranding. Therefore, this fa vors a cystitis. Colonic diverticulosis. Mild pericolonic fat stranding along the undersurface of the mid sigmoid colon. This could represent a developing acute diverticulitis. No abscess or perforation identified. Multiple colonic diverticula are noted. No evidence for bowel obstruction. Normal append ix. IMPRESSION: 1. Mild pericolonic fat stranding at the mid sigmoid colon consistent with acute diverticulitis. No p erforation or abscess identified. 2. Bladder wall thickening with adjacent fat stranding. This likely represents a cystitis. Recommend correlation with urinalysis. 3. A 1.2 cm exophytic hypodense lesion within the upper pole the right kidney. This is incompletely c haracters on this noncontrast study but could represent a hyperdense cyst. Consider follow-up nonemer gent renal ultrasound or dedicated renal MRI for further evaluation. 4. A 1.2 cm nodular density within the lingula which is only partially imaged on this study. [address] follow-up recommended for further evaluation. ACT 112: Positive. There are findings on this exam that require communication between the performing entity and the patient following Patient Test Result Information Act ([place] Act 112) guidelines. Electronically signed by: Jorge Alberto Lopez M.D. 02/19/2021 8:19 AM
[2021-02-19] MEDS ORDERED: OSTEOBIFLEX PO SCH (09:00)
[2021-02-19] MEDS: INSULIN ASPART 100 UNITS/ML 3 ML PEN SC SCH ×4 (09:14→21:24)
[2021-02-19] MEDS: ASCORBIC ACID 500 MG TAB PO SCH (09:15)
[2021-02-19] MEDS: FERROUS SULFATE 325 MG TAB PO SCH (09:16)
[2021-02-19] MEDS: dilTIAZem HCl 60 MG TAB PO SCH (09:18)
[2021-02-19] MEDS: MEGESTROL ACETATE 40 MG TAB PO SCH ×3 (09:18→21:23)
[2021-02-19] MEDS: MULTIVITAMIN TAB PO SCH (09:19)
[2021-02-19] MEDS: POTASSIUM CHLORIDE CRTAB 20 MEQ TABCR PO SCH ×2 (09:19→21:23)
[2021-02-19] MEDS: LACTATED RINGER'S 1,000 ML IV SCH (13:10)
[2021-02-19] MEDS: ACETAMINOPHEN 325 MG TAB PO PRN (21:21)
--- NOTE | 2021-02-19 22:55 | Hospitalist Progress Note ---
Date of Service February 19, 2021 Assessment & Plan (1) Diverticulitis: Sigmoid diverticulitis - uncomplicated. Improving. Currently on zosyn IV. Continue such. Clear liquids today - then full liquids tomorrow. Will need outpatient colonoscopy upon return to [place] in 6-8 weeks. Cont IVF - change to LR at 100cc/hr. (2) Urinary tract infection: 2nd GNR. zosyn should suffice. once culture is final will attempt to narrow abx (abx chosen should cover the diverticulitis, however). (3) Diabetes mellitus: Hold Metformin a1c 7.1% cont novolog (4) HTN (hypertension): Continue diltiazem and Toprol Hold diuretic (5) CHF (congestive heart failure): Hold torsemide and potassium chloride uncertain if diastolic in nature or systolic; suspect former either way she appears volume contracted (6) Renal lesion: 1 cm hyperdense right renal lesion Will need follow-up imaging upon return to [place] patient made aware of this records reviewed from 2017 -- the cyst she was remembering was on the LEFT side at that time thus, the right sided lesion is new (7) MIRIAN (acute kidney injury): Creatinine 1.61 upon admission Cont IVF Repeat BMP am (8) Osteoarthritis: knees, etc (9) GERD (gastroesophageal reflux disease): Continue pantoprazole 40 mg p.o. twice daily (10) Lung nodule: lingular lesion will need f/u in [place] for surveillance (11) Morbid obesity with BMI of 50.0-59.9, adult: BMI 58.9 (12) DVT prophylaxis: heparin 7500 UNITS TID PT eval in am to ensure she will be safe for d/c home with family Admission and Anticipated Discharge Date Admission Date: February 18, 2021 Subjective patient feeling better today. RLQ/LLQ abdominal pain is resolved. no nausea/vomiting. tolerating the clear liquids without any worsening abd pain. better energy today. no urinary symptoms. patient reports she is visiting from [place] - was to travel back to [place] on of this week. staying w/ family locally. patient reports she was told she had a cyst on one of her kidneys when she was hospitalized here in 2017?? Review of Systems Constitutional: no fever, no chills and no anorexia (appetite is coming back) Respiratory: no cough and no dyspnea Cardiovascular: no chest pain Gastrointestinal: no abdominal pain, no nausea and no vomiting Musculoskeletal: + joint pain (knees - severe) Neurologic: + gait abnormality (progressive worsening over time but able to walk to bathroom ) Physical Exam Constitutional: + morbidly obese; no acute distress and no altered mental status ENMT: external ear and nose normal, oropharynx normal Respiratory: normal respiratory effort, lungs clear to auscultation Auscultation: + diminished lung sounds (bases) Cardiovascular: Rate/Rhythm: regular rate and + irregularly irregular Heart Sounds: normal S1 and normal S2; no murmur Vessels: posterior tibial pulses present and dorsalis pedis pulses present; no JVD Extremities: no edema Gastrointestinal (Abdomen): normal bowel sounds, soft, nontender, no hepa tosplenomegaly Inspection/Auscultation: abdomen not distended Skin: no rashes, warm and dry Psychiatric: A+Ox3, euthymic affect Results & Data Results & Data ([facility]) Vital Signs (Past 12 Hours) Vital Signs Temp Pulse Resp BP BP Pulse Ox 02/19/21 21:25 77 109/83 02/19/21 14:51 36.8 C 94 H 16 104/64 96 Laboratory Results Laboratory Results - last 24 hr 02/17/21 02/18/21 02/19/21 19:44 22:26 08:29 POC Glucose 127 H Estimat Average Glucose 157 Hemoglobin A1c 7.1 H SARS-CoV-2 (PCR) NEGATIVE 02/19/21 02/19/21 02/19/21 12:25 17:08 20:38 POC Glucose 169 H 133 H 125 H Estimat Average Glucose Hemoglobin A1c SARS-CoV-2 (PCR) PG Care Time/CCT Total # of Minutes Spent Total Time Spent with Patient: Total time spent is greater than 50% in coordination of care (as documented) at patient's floor/unit and/or counseling patient: Coding Level of Care Code 64724 Subseq Hosp Care Lvl 3 Diagnoses Diverticulitis K57.92 Urinary tract infection N39.0 Diabetes mellitus E11.9 HTN (hypertension) I10 CHF (congestive heart failure) I50.9 Renal lesion N28.9 MIRIAN (acute kidney injury) N17.9 Osteoarthritis M19.90 GERD (gastroesophageal reflux disease) K21.9 Lung nodule R91.1 Morbid obesity with BMI of 50.0-59.9, adult E66.01; Z68.43 DVT prophylaxis Z29.9
[2021-02-20] MEDS: LACTATED RINGER'S 1,000 ML IV SCH ×2 (00:13→09:32)
[2021-02-20] MEDS: PIPERACILLIN/TAZOBACTAM 4.5 GM in DEXTROSE 5% 100 ML IV SCH ×2 (01:19→08:11)
[2021-02-20] MEDS: HEPARIN SOD 5,000 UNIT/0.5 ML VIAL SQ SCH ×3 (05:30→21:07)
[2021-02-20 06:01] LABS: Hematocrit (blood only) 26.8 % (37-47); Hemoglobin 8.9 g/dL (12.0-16.0); Mean Corpuscular Hemoglobin 29.6 pg (25-34); Mean Corpuscular Hgb Conc 33.2 g/dL (32-36); Mean Platelet Volume 9.9 fL (7.4-10.4); Platelet Count 364 K/uL (130-400); RDW Coefficient of Variation 14.7 % (11.5-14.5); Red Blood Count 3.01 M/uL (4.2-5.4); White Blood Count 9.77 K/uL (4.8-10.8)
[2021-02-20 06:32] LABS: Albumin Globulin Ratio 0.5 (0.9-2); Albumin Level 2.5 gm/dl (3.4-5.0); BUN Creatinine Ratio 11.7 (10-20); Calcium 9.1 mg/dl (8.5-10.1); Creatinine Clr Calc Pharmacy 69.2 ml/min; Est GFR (African American) 60.5 ml/min; Est GFR (Non-African American) 52.2 ml/min; Globulin 4.7 gm/dl (2.5-4.0)
[2021-02-20 06:34] LABS: Bilirubin,Total 0.9 mg/dl (0.2-1); Total Protein 7.2 gm/dl (6.4-8.2)
[2021-02-20] MEDS: FERROUS SULFATE 325 MG TAB PO SCH (08:10)
[2021-02-20] MEDS: METOPROLOL TARTRATE 100 MG TAB PO SCH ×2 (08:10→21:06)
[2021-02-20] MEDS: dilTIAZem HCl 60 MG TAB PO SCH (08:10)
[2021-02-20] MEDS: MULTIVITAMIN TAB PO SCH (08:10)
[2021-02-20] MEDS: ASCORBIC ACID 500 MG TAB PO SCH (08:10)
[2021-02-20] MEDS: PANTOprazole 40 MG TAB PO SCH ×2 (08:11→21:06)
[2021-02-20] MEDS: ACETAMINOPHEN 325 MG TAB PO PRN (08:11)
[2021-02-20] MEDS: MEGESTROL ACETATE 40 MG TAB PO SCH ×3 (08:11→21:06)
[2021-02-20] MEDS: POTASSIUM CHLORIDE CRTAB 20 MEQ TABCR PO SCH ×2 (08:11→21:06)
[2021-02-20] MEDS: INSULIN ASPART 100 UNITS/ML 3 ML PEN SC SCH ×4 (09:24→21:03)
[2021-02-20] MEDS ORDERED: CIPROFLOXACIN 500 MG TAB PO ONE (11:00)
[2021-02-20] MEDS: metroNIDAZOLE 500 MG TAB PO SCH ×2 (12:49→21:06)
[2021-02-20] MEDS ORDERED: COLCHICINE 0.6 MG TAB PO ONE (13:00)
[2021-02-20] MEDS: TORSEMIDE 10 MG TAB PO SCH (13:47)
[2021-02-20] MEDS: IBUPROFEN 600 MG TAB PO SCH ×2 (13:48→21:06)
--- NOTE | 2021-02-20 14:02 | XRay Report ---
XR foot RT 2V HISTORY: 65 years-old Female mid-foot pain/swelling; check 4 CPPD chronic right foot pain. COMPARISON: None TECHNIQUE: 3 views of the right foot FINDINGS: Mild to moderate diffuse soft tissue prominence. There is mostly mild to moderate multifocal osteoart hritis. No acute fracture, dislocation or osseous erosion. Arterial calcifications. Mild marginal spu rring of the calcaneus. IMPRESSION: 1. No acute fracture, dislocation or osseous erosion. 2. Diffuse soft tissue swelling. ACT 112: Negative or not required by law. The above report was generated using voice recognition software. It may contain grammatical, syntax o r spelling errors. Electronically signed by: Avni Shah M.D. 02/20/2021 2:01 PM
[2021-02-20 14:16] LABS: Uric Acid 8.2 mg/dl (2.6-7.2)
[2021-02-20] MEDS: CIPROFLOXACIN 500 MG TAB PO SCH (18:38)
[2021-02-20 20:22] LABS: Folate (Folic Acid) > 20.00 ng/ml (>5.38); Vitamin B12 553 pg/ml (193-986)
--- NOTE | 2021-02-20 23:13 | Hospitalist Progress Note ---
Date of Service February 20, 2021 Assessment & Plan (1) Diverticulitis: Plan: sigmoid uncomplicated/simple improving clinically will need colonoscopy in 8 weeks (lives in [place] - will need to get GI referral there) (2) Urinary tract infection: Plan: 2nd klebsiella (3) Diabetes mellitus: Plan: controlled (4) HTN (hypertension): Plan: controlled (5) CHF (congestive heart failure): Plan: suspect chronic diastolic CHF; uncertain if any right heart component regardless she is compensated (6) Renal lesion: Plan: 1cm right-sided complex cyst (7) MIRIAN (acute kidney injury): Plan: resolved (8) Osteoarthritis: (9) GERD (gastroesophageal reflux disease): (10) Lung nodule: Plan: lingular lesion, 1.2cm in size (11) Morbid obesity with BMI of 50.0-59.9, adult: Plan: BMI 58 (12) DVT prophylaxis: (13) Gout of right foot: Plan: suspected uric acid level 8.2 foot x-rays without CPPD changes; no fractures Plan: 1. colchicine 0.6mg po x 1 for #13; then motrin 600mg TID for a few days. 2. cont cipro/flagyl for acute sigmoid diverticulitis. 3. cont cipro for UTI. 4. resume torsemide. 5. cont full liquids. 6. cont novolog for DM. 7. cont heparin 7500 units TID for DVT proph. hopefully d/c in am. Admission and Anticipated Discharge Date Admission Date: February 18, 2021 Subjective pt c/o right mid-foot pain, starting late last night hurt throughout the night hurts to put weight on it and walk has never had gout or pseudogout to her knowledge tolerating liquid diet no abd pain, nausea or emesis stools are liquid no dyspnea or cough feeling good otherwise Review of Systems Constitutional: no fever, no chills, no body aches, no fatigue, no weakness and no anorexia Respiratory: + dyspnea on exertion (at baseline) Cardiovascular: no chest pain Gastrointestinal: + diarrhea/loose stools; no abdominal pain, no nausea, no vomiting and no blood in stools Genitourinary: no dysuria and no difficulty urinating Musculoskeletal: + joint pain (knees, etc - chronic ) Physical Exam Constitutional: + morbidly obese; no acute distress and no altered mental status ENMT: external ear and nose normal, oropharynx normal Respiratory: Auscultation: + diminished lung sounds (bases) and + crackles (right base only ) Cardiovascular: Rate/Rhythm: regular rate and + irregularly irregular Heart Sounds: normal S1 and normal S2; no murmur Vessels: posterior tibial pulses present and dorsalis pedis pulses present; no JVD Extremities: no edema Gastrointestinal (Abdomen): normal bowel sounds, soft, nontender, no hepatosplenomegaly Inspection/Auscultation: abdomen not distended Musculoskeletal: right foot - tender over mid-foot w/ palpation; minimal warmth, mild swelling. toes wnl. right ankle - normal ROM, no synovitis. Skin: no rashes, warm and dry Psychiatric: A+Ox3, euthymic affect Results & Data Results & Data ([facility]) Vital Signs (Past 12 Hours) Vital Signs Temp Pulse Resp BP BP Pulse Ox 02/20/21 22:39 36.6 C 92 H 18 101/76 100 02/20/21 17:33 36.7 C 86 16 134/87 99 Laboratory Results Laboratory Results - last 24 hr 02/20/21 02/20/21 02/20/21 05:42 05:42 08:49 WBC 9.77 RBC 3.01 L Hgb 8.9 L Hct 26.8 L MCV 89.0 MCH 29.6 MCHC 33.2 RDW Std Deviation 48.0 H RDW Coeff of Shelli 14.7 H Plt Count 364 MPV 9.9 Sodium 141 Potassium 4.0 Chloride 113 H Carbon Dioxide 25 Anion Gap 3.0 BUN 13 Creatinine 1.12 D Est Cr Clr Drug Dosing 69.2 Est GFR ( Amer) 60.5 Est GFR (Non-Af Amer) 52.2 BUN/Creatinine Ratio 11.7 Glucose 119 H POC Glucose 135 H Uric Acid Calcium 9.1 Iron Transferrin Transferrin % Sat Ferritin Total Bilirubin 0.9 D AST 10 L ALT 22 Alkaline Phosphatase 72 Total Protein 7.2 D Albumin 2.5 L Globulin 4.7 H Albumin/Globulin Ratio 0.5 L Vitamin B12 Folate 02/20/21 02/20/21 02/20/21 12:04 13:46 13:46 WBC RBC Hgb Hct MCV MCH MCHC RDW Std Deviation RDW Coeff of Shelli Plt Count MPV Sodium Potassium Chloride Carbon Dioxide Anion Gap BUN Creatinine Est Cr Clr Drug Dosing Est GFR ( Amer) Est GFR (Non-Af Amer) BUN/Creatinine Ratio Glucose POC Glucose 163 H Uric Acid 8.2 H Calcium Iron 41 Transferrin 162 L Transferrin % Sat 18 Ferritin 1232.0 H Total Bilirubin AST ALT Alkaline Phosphatase Total Protein Albumin Globulin Albumin/Globulin Ratio Vitamin B12 553 Folate > 20.00 02/20/21 02/20/21 17:02 20:34 WBC RBC Hgb Hct MCV MCH MCHC RDW Std Deviation RDW Coeff of Shelli Plt Count MPV Sodium Potassium Chloride Carbon Dioxide Anion Gap BUN Creatinine Est Cr Clr Drug Dosing Est GFR ( Amer) Est GFR (Non-Af Amer) BUN/Creatinine Ratio Glucose POC Glucose 89 146 H Uric Acid Calcium Iron Transferrin Transferrin % Sat Ferritin Total Bilirubin AST ALT Alkaline Phosphatase Total Protein Albumin Globulin Albumin/Globulin Ratio Vitamin B12 Folate Diagnostic Findings Foot X-Ray 02/20/21 13:00 XR foot RT 2V HISTORY: 65 years-old Female mid-foot pain/swelling; check 4 CPPD chronic right foot pain. COMPARISON: None TECHNIQUE: 3 views of the right foot FINDINGS: Mild to moderate diffuse soft tissue prominence. There is mostly mild to moderate multifocal osteoarthritis. No acute fracture, dislocation or osseous erosion. Arterial calcifications. Mild marginal spurring of the calcaneus. IMPRESSION: 1. No acute fracture, dislocation or osseous erosion. 2. Diffuse soft tissue swelling. ACT 112: Negative or not required by law. The above report was generated using voice recognition software. It may contain grammatical, syntax or spelling errors. Electronically signed by: Avni Shah M.D. 02/20/2021 2:01 PM urine cx - klebsiella PG Care Time/CCT Total # of Minutes Spent Total Time Spent with Patient: Total time spent is greater than 50% in coordination of care (as documented) at patient's floor/unit and/or counseling patient: Coding Level of Care Code 30018 Subseq Hosp Care Lvl 3 Diagnoses Diverticulitis K57.92 Urinary tract infection N39.0 Diabetes mellitus E11.9 HTN (hypertension) I10 CHF (congestive heart failure) I50.9 Renal lesion N28.9 MIRIAN (acute kidney injury) N17.9 Osteoarthritis M19.90 GERD (gastroesophageal reflux disease) K21.9 Lung nodule R91.1 Morbid obesity with BMI of 50.0-59.9, adult E66.01; Z68.43 DVT prophylaxis Z29.9 Gout of right foot M10.9
[2021-02-21] MEDS: HEPARIN SOD 5,000 UNIT/0.5 ML VIAL SQ SCH (05:43)
[2021-02-21] MEDS: CIPROFLOXACIN 500 MG TAB PO SCH (05:45)
[2021-02-21 07:17] LABS: Hemoglobin 9.1 g/dL (12.0-16.0)
[2021-02-21 07:36] LABS: BUN Creatinine Ratio 10.2 (10-20); Calcium 9.4 mg/dl (8.5-10.1); Creatinine Clr Calc Pharmacy 64.6 ml/min; Est GFR (African American) 55.7 ml/min; Est GFR (Non-African American) 48.1 ml/min; Potassium 4.2 mmol/L (3.5-5.1)
[2021-02-21] MEDS: FERROUS SULFATE 325 MG TAB PO SCH (08:38)
[2021-02-21] MEDS: TORSEMIDE 10 MG TAB PO SCH (08:38)
[2021-02-21] MEDS: IBUPROFEN 600 MG TAB PO SCH (08:38)
[2021-02-21] MEDS: dilTIAZem HCl 60 MG TAB PO SCH (08:39)
[2021-02-21] MEDS: MULTIVITAMIN TAB PO SCH (08:39)
[2021-02-21] MEDS: metroNIDAZOLE 500 MG TAB PO SCH (08:39)
[2021-02-21] MEDS: MEGESTROL ACETATE 40 MG TAB PO SCH (08:44)
[2021-02-21] MEDS: POTASSIUM CHLORIDE CRTAB 20 MEQ TABCR PO SCH (08:45)
[2021-02-21] MEDS: METOPROLOL TARTRATE 100 MG TAB PO SCH (08:45)
[2021-02-21] MEDS: PANTOprazole 40 MG TAB PO SCH (08:45)
[2021-02-21] MEDS: ASCORBIC ACID 500 MG TAB PO SCH (08:45)
[2021-02-21] MEDS: INSULIN ASPART 100 UNITS/ML 3 ML PEN SC SCH ×2 (08:49→12:36)
--- NOTE | 2021-02-21 12:09 | Discharge Summary ---
Date of Service date of admission - February 18, 2021 date of discharge - February 21, 2021 Admission HPI Per Admitting Provider The patient is a 65yo female with a PMH including HTN, diverticulitis, DM, iron deficiency, OA, GERD, morbid obesity and CHF. The patient presents with LLQ abdominal pain and nausea. Work-up in the emergency department included a CT scan of abdomen & pelvis which showed sigmoid diverticulitis, a right renal 1 cm hyperdense lesion, and uterine fibroid. Pertinent laboratories: WBC 16.12, platelets 444, creatinine 1.61, total bilirubin 1.6, total protein 9.2, albumin 3.2 and abnormal urine analysis. In the emergency department, she was prescribed ceftriaxone 1 g IV, Flagyl 500 mg IV, normal saline 1 L, Zofran 4 mg IV and morphine sulfate 4 mg IV by the ED. Principal Diagnosis 1. sigmoid diverticulitis 2. UTI Discharge Exam Constitutional + morbidly obese; no acute distress and no altered mental status ENMT external ear and nose normal, oropharynx normal Respiratory normal respiratory effort, lungs clear to auscultation Auscultation: + diminished lung sounds (bases) and + crackles (right base only ) Cardiovascular Rate/Rhythm: regular rate and + irregularly irregular Heart Sounds: normal S1 and normal S2; no murmur Vessels: posterior tibial pulses present and dorsalis pedis pulses present; no JVD Extremities: no edema Gastrointestinal (Abdomen) normal bowel sounds, soft, nontender, no hepatosplenomegaly Inspection/Auscultation: abdomen not distended Musculoskeletal right foot - minimal mid-foot swelling, no tenderness to palpation Skin no rashes, warm and dry Psychiatric A+Ox3, euthymic affect Discharge Data Allergies Allergy/AdvReac Type Severity Reaction Status Date / Time codeine AdvReac Severe N/V Unverified 02/18/21 22:16 Ordered Studies Abdomen/Pelvis CT 02/18/21 20:[address] WITHOUT CONTRAST CT DOSE: 1968.20 mGy.cm HISTORY: abd pain L side, acute kidney injury kidney stone vs diverticulitis TECHNIQUE: Multiaxial CT images of the abdomen and pelvis were performed without contrast. A dose lowering technique was utilized adhering to the principles of ALARA. COMPARISON STUDY: Abdomen and pelvis CT 08/06/2017. FINDINGS: Partially visualized 1.2 cm nodular density within the lingula on image 1. The right lung base is clear. No pneumoperitoneum. No pneumatosis. No suspicious lytic or blastic osseous lesions. Poststernotomy. Scattered punctate calcified granuloma seen within the liver and spleen. The unenhanced pancreas and adrenal glands unremarkable. No renal or ureteral stones. No hydronephrosis. There is 1.2 cm exophytic hyperdense right renal lesion. This is incompletely characterized on this noncontrast study but may represent a hyperdense cysts. Minimal bilateral perinephric edema. No retroperitoneal lymphadenopathy. Multiple uterine fibroids some of which are partially calcified are again noted. The bladder is decompressed. The bladder wall thickening with adjacent fat stranding. Therefore, this favors a cystitis. Colonic diverticulosis. Mild pericolonic fat stranding along the undersurface of the mid sigmoid colon. This could represent a developing acute diverticulitis. No abscess or perforation identified. Multiple colonic diverticula are noted. No evidence for bowel obstruction. Normal appendix. IMPRESSION: 1. Mild pericolonic fat stranding at the mid sigmoid colon consistent with acute diverticulitis. No perforation or abscess identified. 2. Bladder wall thickening with adjacent fat stranding. This likely represents a cystitis. Recommend correlation with urinalysis. 3. A 1.2 cm exophytic hypodense lesion within the upper pole the right kidney. This is incompletely characters on this noncontrast study but could represent a hyperdense cyst. Consider follow-up nonemergent renal ultrasound or dedicated renal MRI for further evaluation. 4. A 1.2 cm nodular density within the lingula which is only partially imaged on this study. [address] follow-up recommended for further evaluation. ACT 112: Positive. There are findings on this exam that require communication between the performing entity and the patient following Patient Test Result Information Act ([place] Act 112) guidelines. Electronically signed by: Jorge Alberto Lopez M.D. 02/19/2021 8:19 AM Foot X-Ray 02/20/21 13:00 XR foot RT 2V HISTORY: 65 years-old Female mid-foot pain/swelling; check 4 CPPD chronic right foot pain. COMPARISON: None TECHNIQUE: 3 views of the right foot FINDINGS: Mild to moderate diffuse soft tissue prominence. There is mostly mild to moderate multifocal osteoarthritis. No acute fracture, dislocation or osseous erosion. Arterial calcifications. Mild marginal spurring of the calcaneus. IMPRESSION: 1. No acute fracture, dislocation or osseous erosion. 2. Diffuse soft tissue swelling. ACT 112: Negative or not required by law. The above report was generated using voice recognition software. It may contain grammatical, syntax or spelling errors. Electronically signed by: Avni Shah M.D. 02/20/2021 2:01 PM Hospital Course (1) Diverticulitis: Acute, uncomplicated sigmoid diverticulitis was treated with diet restriction, IV fluids, and IV antibiotics. She improved with such, and her diet was gradually advanced without difficulty. At discharge her IV antibiotics were changed to oral cipro and flagyl; she will complete 8 more days of each. She was asked to follow a full liquids diet for another 24 hours, then gradually reintroduce low fiber foods into the diet. Low-fiber diet advised for 10 days. I recommended she have an outpatient colonoscopy upon return to [place] in 6-8 weeks. (2) Urinary tract infection: 2nd klebsiella. Nearly vora-sensitive. Received IV antibiotics, then oral cipro (also being used for diverticulitis). (3) Diabetes mellitus: Hba1c 7.1% Will continue metformin post-discharge. (4) HTN (hypertension): Continue diltiazem and Toprol Continue torsemide (5) CHF (congestive heart failure): uncertain if diastolic in nature or systolic; suspect former, however. either way she was initially volume contracted, then achieved euvolemia following IV fluids. She will continue her usual metoprolol and torsemide at discharge. (6) Renal lesion: 1 cm hyperdense right renal lesion. Will need follow-up imaging upon return to [place]. patient made aware of this incidental finding. records reviewed from 2017 -- she had a LEFT-sided cyst at that time, but nothing on the right. thus, the right sided lesion is new. (7) MIRIAN (acute kidney injury): Creatinine 1.61 upon admission Creatinine 1.2 at discharge (8) Osteoarthritis: knees, etc (9) GERD (gastroesophageal reflux disease): Continue pantoprazole 40 mg p.o. twice daily (10) Lung nodule: lingular lesion will need f/u in [place] for surveillance (11) Morbid obesity with BMI of 50.0-59.9, adult: BMI 58.9 (12) Gout of right foot: patient developed right mid-foot pain/swelling during the stay. was initially difficult to weight-bear. uric acid level was 8.2. received anti-inflammatories with improved pain. x-rays without fracture or signs of pseudogout. she will take a few more days of ibuprofen then stop. (13) Anemia: exact cause uncertain. B12, folate, and iron studies all normal. Hb range 9-11 while here (9 at discharge). she will need follow-up for this upon return to [place]. Total Time Total Time Spent Total Time Spent (In Minutes): 50 Discharge Plan Discharge Items Patient Disposition: Home - Self-Care Reason For Visit: SIGMOID DIVERTICULITIS, UTI Discharge Diagnosis: 1. diverticulitis of sigmoid colon - improving; follow-up with gastroenterology recommended; may need colonoscopy in 6-8 weeks. 2. UTI (urinary tract infection) - resolved. 3. gout of right foot - improved. 4. anemia - hemoglobin range this stay 9 to 11 (9 on day of discharge). Follow-up recommended. B12, folate, and iron levels all normal. 5. 1cm right-sided kidney cyst - follow-up needed with urology in [place]. 6. 1.2cm left-sided lung nodule - follow-up needed in [place] for this. Activity: Resume your previous activity Non-emergency contact: Primary Care Provider Call non-emergency contact if: you have any medication questions, your symptoms worsen, your pain is not controlled, your pain is worsening, your pain is unusual for you, your pain is concerning for you and you have a fever Follow-up/Referrals: Berry Ro MD [Primary Care Provider] - (see Dr Ro within 5 days of your return to [place]) Diet: Full liquid Addtl Attending Provider Instructions: Mrs Reed, You were admitted to [facility] and treated for diverticulitis of your sigmoid colon as well as a urinary tract infection. Both improved with IV antibiotics while here. You also developed gout of your right foot during your stay. Your uric acid level was 8.2 (normal is up to about 6). On your admission CT of the abdomen & pelvis we incidentally saw a nodule in your left lung and a cyst on your right kidney both of which will require follow-up in [place]. Most lung nodules are BENIGN and most kidney cysts are also benign. Finally, you were found to have anemia (low red blood cells) which has been an ongoing problem for you even in [place]. Recommendations - 1. Diverticulitis - * antibiotics - * ciprofloxacin 500mg twice daily for 8 more days * metronidazole 500mg three times daily for 8 more days. Please do not drink alcohol while taking antibiotics. Further, the metronidazole can sometimes cause stomach upset and sometimes a metallic taste in your mouth. These are typical side effects. * take probiotics once daily for 10 days * diet - * full liquids TODAY * then, on 02/22/21, GRADUALLY introduce low fiber foods into your diet * please follow a low-fiber diet for about 10 days * see handouts 2. Urinary tract infection - the ciprofloxacin will cover your UTI nicely. 3. Please have follow-up for the kidney cyst and lung nodule as noted above. 4. Gout - * see gout handout regarding diet. * take [id number] ibuprofen 400-600mg twice daily for 2-3 more days then stop. If the foot is feeling good after 2 days you can stop the ibuprofen. 5. On your drive back to [place] please stop every 1.5 to 2 hours, stretch, and take a good walk. This will help prevent blood clots in your legs. 6. Colonoscopy - please ask your family doctor for a GI referral to get a colonoscopy in about 8 weeks. 7. If the anemia stays stable and your colonoscopy is ok please talk to your family doctor OR property field adjuster about blood thinners for your a.fib. 8. We have provided a copy of your CT scan for your doctors back home. Follow-up - see Dr Ro upon return to [place] Return to any hospital if - * you are having fevers over 100 degrees * you have worsening abdominal pain * you have nausea and/or vomiting that is severe * you have worsening diarrhea * you have shortness of breath or chest pains * any other concerns It was a pleasure caring for you! Safe travels, Dr Stoddard Pending Studies at Discharge: No Stand-Alone Forms: My [facility] [employer], Smoking Cessation Medications and DC Order Prescriptions: Continued diltiazem HCl 120 mg tablet 120 mg PO DAILY RF: 0 metoprolol tartrate 100 mg tablet 100 mg PO BID RF: 0 torsemide 20 mg tablet 20 mg PO BID RF: 0 pantoprazole 40 mg tablet,delayed release (DR/EC) 40 mg PO BID RF: 0 megestrol 40 mg tablet 40 mg PO TID RF: 0 metformin 1,000 mg tablet 1,000 mg PO BID RF: 0 potassium chloride 20 mEq tablet,ER particles/crystals 20 meq PO BID RF: 0 Osteobiflex 1 tab PO BID RF: 0 multivitamin Tablet 1 tab PO DAILY RF: 0 ascorbic acid buffered 1,000 mg Tablet Extended Release 1,000 tab PO DAILY RF: 0 ferrous sulfate 325 mg (65 mg iron) Tablet,Delayed Release (Dr/Ec) 325 mg PO DAILY RF: 0 Discharge Orders: Discharge Order (Routine); Ordered 02/21/21 Ordered By: Nate Rock/Other Patient Handouts: A1C, Low-Fiber Diet, Managing Type 2 Diabetes, Diverticulosis Diverticulitis, Full Liquid Diet Dc, Eating to Prevent Gout, ED Pulmonary Nodule, Solitary Admission Data Admit Date/Time: 02/18/21 23:30 Attending Provider: Nate Stoddard Admit Provider: Ryan Garcia Primary Care Provider: Berry Ro Other Interventions: Discharge Summary Assessment (RN) Last Done: 02/21/21 12:06 Coding Level of Care Code D/C DAY MANAGEMENT >30 MINS Diagnoses Diverticulitis K57.92 Urinary tract infection N39.0 Diabetes mellitus E11.9 HTN (hypertension) I10 CHF (congestive heart failure) I50.9 Renal lesion N28.9 MIRIAN (acute kidney injury) N17.9 Osteoarthritis M19.90 GERD (gastroesophageal reflux disease) K21.9 Lung nodule R91.1 Morbid obesity with BMI of 50.0-59.9, adult E66.01; Z68.43 Gout of right foot M10.9 Anemia D64.9
== END 2021-02-21 13:44 | disposition home or self-care (01) | DRG 392 ==
LOC: ED 18:07 → SUATTDRO 23:30 → 3W 23:30
DX: K57.32 Diverticulitis of large intestine without perforation or abscess without bleeding; D64.9 Anemia, unspecified; N28.1 Cyst of kidney, acquired; I50.32 Chronic diastolic (congestive) heart failure; N39.0 Urinary tract infection, site not specified; E11.9 Type 2 diabetes mellitus without complications; Z51.81 Encounter for therapeutic drug level monitoring; Z68.43 Body mass index [BMI] 50.0-59.9, adult; M19.90 Unspecified osteoarthritis, unspecified site; K21.9 Gastro-esophageal reflux disease without esophagitis; Z79.84 Long term (current) use of oral hypoglycemic drugs; Z87.19 Personal history of other diseases of the digestive system; E66.01 Morbid (severe) obesity due to excess calories; Z79.899 Other long term (current) drug therapy; B96.1 Klebsiella pneumoniae [K. pneumoniae] as the cause of diseases classified elsewhere; M10.9 Gout, unspecified; N17.9 Acute kidney failure, unspecified; I11.0 Hypertensive heart disease with heart failure; Z88.5 Allergy status to narcotic agent; E61.1 Iron deficiency; R91.1 Solitary pulmonary nodule